=== PATIENT | male | born 2000 | race Caucasian/White ===

== ENCOUNTER 2020-06-17 11:56 | Emergency (ER) | payer BC, SELFPAY ==
[2020-06-17 12:11] VITALS: BP 145/78; PULSE 123; TEMP 36.1; O2SAT 96
--- NOTE | 2020-06-17 12:15 | DI.RAD_ITS ---
EXAM: XR KNEE RT 3V AP,LAT,JAKE CLINICAL HISTORY: Lateral knee pain,. TECHNIQUE: 2D digital imaging was performed. COMPARISON: No exams were available for comparison FINDINGS: Main finding here is a large unstable osteochondral defect in the articular surface of the medial fem oral condyle. There is an adjacent 11 by 13 by 5 millimeter osteophytic fragment at this level. Sma ll joint effusion. No degenerative changes. No osseous lesions. IMPRESSION: Large unstable osteochondral defect in the medial femoral condyle. Small joint effusion. DATA REPOSITORY: RADIATION DOSE DELIVERED:
--- NOTE | 2020-06-17 12:22 | W.ED.GENAD ---
Discharge Plan Disposition Patient Disposition: HOME Condition: Stable Discharge Details Clinical Impression: Chronic pain of right knee Primary Care Provider: Mackenzie,Local ED Provider: Jessa Wynn Home Meds and New Rx's Prescriptions: No Action No Known Home Meds RF: 0 Discharge Instructions Instructions: Knee Pain (ED), Meniscus Tear (ED) Additional Instructions: Rest, ice, compression, elevation. Please take Tylenol or Ibuprofen with food every 4-6 hours as needed for pain and swelling. Wear splint as needed for comfort. Please follow-up with [facility] [place] orthopedics within the next week regarding need for possible MRI and discussion of treatment options with test specialist. Referrals: Mk Landry MD [ [facility] STAFF PHYSICIAN] - 1 week Medical Decision Making 20-year-old male presents to the ER chief complaint of right knee pain which began approximately 2 hours prior to arrival. He states that he was laying in bed with his knee when he got stuck he also states that he has been having some pain and locking of his right leg for a while. He denies any significant injuries or falls that he knows of. He does have a past medical history of anxiety, ADHD, Tourette's syndrome, obesity. He is not currently taking any medications at this time. He does endorse alcohol a few times a week non-smoker. Denies any illicit drugs. Did not take any Tylenol or ibuprofen prior to arrival. 1313: Spoke with Orthopedic Surgeon Mk Landry MD who was able to personally review the x-ray he recommends follow-up in the clinic and will discuss MRI with patient and possible surgery. He thinks this could possibly be a cartilage tear And may need surgical intervention. No recommendations at this time for splint or immobilization and will discuss this with patient and mom for symptomatic treatment. CLINICAL HISTORY: Lateral knee pain,. TECHNIQUE: 2D digital imaging was performed. COMPARISON: No exams were available for comparison FINDINGS: Main finding here is a large unstable osteochondral defect in the articular surface of the medial femoral condyle. There is an adjacent 11 by 13 by 5 millimeter osteophytic fragment at this level. Small joint effusion. No degenerative changes. No osseous lesions. IMPRESSION: Large unstable osteochondral defect in the medial femoral condyle. Small joint effusion. Patient was given a hinged knee staff. Differential diagnosis include meniscus tear, cartilage tear, occult fracture. HPI General Mode of arrival: ambulatory. Date/Time Provider Initiated Documentation: 06/17/20 11:58. Limitations to Documentation: no limitations. Information obtained by: patient. HPI Narrative: 20-year-old male presents to the ER chief complaint of right knee pain which began approximately 2 hours prior to arrival. He states that he was laying in bed with his knee when he got stuck he also states that he has been having some pain and locking of his right leg for a while. He denies any significant injuries or falls that he knows of. He does have a past medical history of anxiety, ADHD, Tourette's syndrome, obesity. He is not currently taking any medications at this time. He does endorse alcohol a few times a week non-smoker. Denies any illicit drugs. Did not take any Tylenol or ibuprofen prior to arrival. Related Data Home Medications Medication Instructions Recorded Confirmed Unknown [No Known Home Meds] 06/17/20 06/17/20 Allergies Allergy/AdvReac Type Severity Reaction Status Date / Time No Known Allergies Allergy Unverified 06/17/20 12:17 General Stated Complaint: Orthopedic LV: 4 Review of Systems All systems reviewed & are unremarkable except as noted in HPI and below Musculoskeletal Musculoskeletal: Reports back pain, Denies deformity, Reports arthralgias, Reports limited range of motion (Right knee), Denies numbness, Denies radiating pain into limb, Reports stiffness and Denies tingling Neurologic Neurologic: Denies numbness and Denies tingling [facility] Medical History Anxiety Attention deficit hyperactivity disorder, combined type Javi de la Tourette's syndrome Hyperhidrosis Obesity Surgical History Circumcision Hydrocelectomy Family History Mother Mental disorder anxiety Father Essential hypertension Grandparent Essential hypertension Heart disease Neoplasm Other Substance abuse Other Alcohol abuse Social History Smoking/Tobacco Use Status: Never Smoking risk assessment performed?: Yes Alcohol Intake: current Alcohol Intake frequency: a few times a week Alcohol type: beer Drug use: Never Substance use type: does not use Do you feel safe at home: Yes Do you feel safe in your relationship?: Yes Exam Narrative Exam Narrative: Constitutional: Alert and oriented x3. Appears stated age. Obese body habitus. Appears anxious, slightly diaphoretic. Head: Normocephalic, no trauma. Eyes: Pupils PERRLA, Red reflex noted, EOM's intact. Eyelids symmetrical without lesions, discharge, or swelling. ENT: Bilateral TM's WNL, External ear normal to inspection, no mastoid TTP, swelling, or erythema, Nasal turbinates WNL, no nasal discharge. Normal dentition, Posterior pharynx WNL, no exudate. Chest: RRR, Normal S1, S2, distal pulses intact. Resp: Lungs clear to auscultation bilaterally, no wheezes, rales, or rhonchi. Musculoskeletal: Normal gait, 5/5 strength to all four extremities. Please take Tylenol or Ibuprofen with food every 4-6 hours as needed for pain and swelling. Anterior joint tenderness with increased flexion of lateral joint. Distal pulses intact no swelling no calf pain ,no obvious deformity. Skin: No suspicious rashes or lesions. Capillary refill less than 2 sec. Neurologic: Cranial nerves II-XII intact. Alert and oriented x 3. DTR's intact. Hematologic/Lymphatic: No ecchymosis, no lymphadenopathy. Course Vital Signs Vital signs: Vital Signs Temperature 36.1 C L 06/17/20 12:11 Pulse 123 H 06/17/20 12:11 Blood Pressure 145/78 H 06/17/20 12:11 Pulse Oximetry 96 06/17/20 12:11 Temperature 36.1 C L 06/17/20 12:11 Temperature Source Temporal Artery Scan 06/17/20 12:11 Pulse 123 H 06/17/20 12:11 Respiratory Effort Non-Labored 06/17/20 12:15 Blood Pressure 145/78 H 06/17/20 12:11 Blood Pressure Position Sitting 06/17/20 12:11 Pulse Oximetry 96 06/17/20 12:11 Oxygen Delivery Method Room Air 06/17/20 12:11 Oxygen Flow Rate 0 06/17/20 12:11 Pain Level 0 06/17/20 12:11 Comment 06/17/20 12:11
[2020-06-17] MEDS: Ibuprofen 600 MG TAB PO (12:28)
== END 2020-06-17 13:34 | disposition home or self-care (01) ==
PROVIDERS: Emergency Provider Registered Nurse Emergency
DX: M25.561 Pain in right knee (principal); G89.29 Other chronic pain; M25.461 Effusion, right knee
CPT/HCPCS: 73562; 99283

== ENCOUNTER 2020-07-09 00:46 | Outpatient (CLI) | payer BC, SELFPAY ==
--- NOTE | 2020-07-09 07:00 | DI.MRI_ITS ---
EXAM: MR LOWER JOINT RT WO CLINICAL HISTORY: RT KNEE PAIN, M93.269,OSTEOCHONDRITIS DISSECANS,M25.561,G89.29. TECHNIQUE: Multiplanar multisequence MRI was performed. COMPARISON: CR XR KNEE RT 3V AP,LAT,JAKE from 06/17/2020 FINDINGS: The exam is limited by patient body habitus and patient motion. There is inhomogeneous fat suppressi on. There is an osteochondral defect of the anterolateral aspect of the medial femoral condyle. there is an in situ fragment measuring 15 millimeters. There is adjacent marrow edema and some fluid between the fragment consistent with instability. There is disruption of the overlying articular cartilage . No additional defects are seen. The marrow signal is otherwise unremarkable. The cruciate and co llateral ligaments as well as extensor mechanism appear intact. No meniscal tear is are seen. The re is a small joint effusion. IMPRESSION: 15 millimeter osteochondral defect of the medial femoral condyle with cartilage defect and surroundin g edema, consistent with instability.. DATA REPOSITORY:
== END 2020-07-09 01:06 ==
PROVIDERS: Visit Provider Student in an Organized Health Care Education/Training Program
DX: M25.561 Pain in right knee (principal); M93.261 Osteochondritis dissecans, right knee; M25.361 Other instability, right knee
CPT/HCPCS: 73721

== ENCOUNTER 2020-07-28 13:37 | Outpatient (CLI) | payer BC, SELFPAY ==
--- NOTE | 2020-07-28 13:15 | DI.RAD_ITS ---
EXAM: XR KNEE RT 2V AP,LAT CLINICAL HISTORY: F/U. TECHNIQUE: 2D digital imaging was performed. COMPARISON: CR XR KNEE RT 3V AP,LAT,JAKE from 06/17/2020 FINDINGS: BONES: No acute fracture is present. No bony destructive lesion is seen. The previously seen osteocho ndral fragment is not visualized on the current examination. JOINTS: The knee is normally aligned. No joint effusion is seen. SOFT TISSUE: Normal. IMPRESSION: DATA REPOSITORY: RADIATION DOSE DELIVERED:
== END 2020-07-28 13:38 | disposition home or self-care (01) ==
LOC: DIORS 13:38
PROVIDERS: Visit Provider Student in an Organized Health Care Education/Training Program
DX: M25.561 Pain in right knee (principal); G89.29 Other chronic pain
CPT/HCPCS: 73560

== ENCOUNTER 2020-09-23 01:53 | Outpatient (CLI) | payer BC, SELFPAY ==
[2020-09-23 12:43] LABS: Source Nasal/Nares
[2020-09-23 17:23] LABS: COVID-19 PCR Negative (Negative)
== END 2020-09-23 01:54 | disposition home or self-care (01) ==
LOC: LBO 01:54
PROVIDERS: Visit Provider Student in an Organized Health Care Education/Training Program
DX: Z20.822 Contact with and (suspected) exposure to COVID-19 (principal); Z01.818 Encounter for other preprocedural examination
CPT/HCPCS: 87635

== ENCOUNTER 2020-09-25 06:17 | Day surgery (SDC) | payer BC, SELFPAY ==
--- NOTE | 2020-08-04 10:21 | W.ANESCON ---
General Date of Service Date of Service: 08/04/20 Reason for Consult Requesting Provider: Mk Landry How Consult Conducted:: Chart Review Reason for Consult:: BMI Consult Recommendation after Review:: Ok to proceed. 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 Medical History Medical History (Updated 07/28/20 @ 16:34 by Mk Landry MD) Anxiety Attention deficit hyperactivity disorder, combined type Javi de la Tourette's syndrome Hyperhidrosis Obesity Osteochondritis dissecans of knee Right knee Surgical History Surgical History Circumcision Hydrocelectomy Tobacco Smoking/Tobacco Use Status: Never Alcohol Alcohol Intake: current Alcohol intake frequency: a few times a week Alcohol type: beer Substance Use Substance use: Never Substance use type: does not use Vital Signs & Lab Results Point of Care Results Nursing Point of Care Results: No Data to Display Lab Results Blood Type / Crossmatch: No Data to Display Complete Blood Count: No Data to Display Complete Metabolic Panel: Hemoglobin A1c 6.1 % (4.5-6.2) 11/15/13 09:51 11/15/13 Liver Function Panel: No Data to Display Coagulation Panel: No Data to Display Cardiac Panel: No Data to Display Arterial Blood Gas: No Data to Display Venous Blood Gas: No Data to Display Pancreas Panel: No Data to Display Thyroid Panel: Thyroid Stimulating Hormone (TSH) 3.09 uIU/mL (0.36-3.74) 11/18/13 13:30 11/18/13 Infectious Disease: Group A Streptococcus Rapid Negative 05/12/14 11:09 05/12/14 Blood Cultures: No Data to Display Toxicology Panel: No Data to Display Imaging and Studies Imaging and Studies EKG Image & Interpretation: No Data to Display Stress Test Interpretation: No Data to Display Echo Interpretation: No Data to Display Carotid Artery US: No Data to Display Pulmonary Function Test Interpretation: No Data to Display Anesthesia Assessment and Plan ASA Classification ASA Score: ASA 3 Anesthesia Plan Anesthesia Technique: General Anesthesia Airway Planned: Endotracheal Tube Pain Management: Surgeon and patient request nerve block Monitors Used: Standard Monitors Preoperative Comments:: Asked to evaluate Mr. Lyn's ability to have anesthesia here at [facility] given his BMI. While his BMI is significantly elevated, he has no other major medical history, and based on age and health history he should be a reasonable candidate for anesthesia here.
[2020-09-25] VITALS (10 sets, daily range): BP systolic 115–143; BP diastolic 59–94; PULSE 90–109; RESP 18–23; TEMP 36–36.7; O2SAT 94–100; BMI 53.4
--- NOTE | 2020-09-25 07:00 | W.ANESPRE ---
General Info Date of Service Date Performed: 09/25/20 Height: 6 ft Weight: 178.7 kg Body Mass Index (BMI): 53.4 Surgical Procedure: Operation Date: 09/25/20 07:40 Proposed Procedures Side Surgeon p Knee Arthroscopy with any indicated meniscal,chondral and synovial surgery including osteochondral defect,versus loose body removal and microfracture. Possible manipulation Right Mk Landry MD Meds Allergies and Home Medications Allergies Allergy/AdvReac Type Severity Reaction Status Date / Time No Known Allergies Allergy Verified 09/25/20 06:40 Home Medication Medication Instructions Recorded Unknown [No Known Home Meds] 06/17/20 Current Visit Medications: Current Medications Generic Name Dose Route Start Last Admin Trade Name Freq PRN Reason Stop Dose Admin Cefazolin Sodium 3,000 mg/ 100 mls @ 200 mls/hr 09/25/20 06:00 Sodium Chloride IVPB 09/25/20 16:00 Q8H GERARDO Ringer's Solution 1,000 mls @ 100 mls/hr 09/25/20 06:00 IV 10/24/20 23:59 INFUSION GERARDO IV Miscellaneous Supplies 1 each 09/25/20 06:00 Iv Access IV 10/24/20 23:59 DIRECTED GERARDO Sodium Chloride 0 ml 09/25/20 06:00 Normal Saline Flush 10 Ml Syr IV 10/24/20 23:59 PRN PRN Sodium Chloride 0 ml 09/25/20 06:00 Normal Saline 10 Ml Vial IJ 10/24/20 23:59 DIRECTED PRN Sterile Water 0 ml 09/25/20 06:00 Water,Injection,Sterile 10 Ml Vial IJ 10/24/20 23:59 DIRECTED PRN PFSH Active Problems Active Problems: Problem Status Onset Code Stiffness of right knee M25.661 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 Medical History Medical History Anxiety Attention deficit hyperactivity disorder, combined type Javi de la Tourette's syndrome Hyperhidrosis Obesity Osteochondritis dissecans of knee Right knee Surgical History Surgical History Circumcision Hydrocelectomy Tobacco Smoking/Tobacco Use Status: Never Alcohol Alcohol Intake: current Alcohol intake frequency: a few times a week Alcohol type: beer Substance Use Substance use: Never Substance use type: does not use Vital Signs and Lab Results Vital Signs Most Recent Vital Signs in EMR: Most Recent Vital Signs Temp Pulse Resp BP Pulse Ox 36.7 C 101 H 20 141/94 H 98 09/25/20 06:21 09/25/20 06:21 09/25/20 06:21 09/25/20 06:21 09/25/20 06:21 Lab Results Blood Type / Crossmatch: No Data to Display Complete Blood Count: No Data to Display Complete Metabolic Panel: No Data to Display Liver Function Panel: No Data to Display Coagulation Panel: No Data to Display Cardiac Panel: No Data to Display Arterial Blood Gas: No Data to Display Venous Blood Gas: No Data to Display Pancreas Panel: No Data to Display Thyroid Panel: No Data to Display Infectious Disease: Coronavirus (COVID-19)(PCR) Negative (Negative) 09/23/20 11:20 09/23/20 Coronavirus 2019 Source Nasal/Nares 09/23/20 11:20 09/23/20 Blood Cultures: No Data to Display Toxicology Panel: No Data to Display Anesthesia Assessment and Plan Anesthesia History Personal History: No History of Anesthesia Complications Family History: No Family History of Anesthesia Complications Exercise Tolerance Exercise Tolerance: Metabolic Equivalents>4 Pertinent Negatives Pertinent Negatives: No Symptoms of GERD, No Major Cardiovascular Symptoms or Complaints and No Major Pulmonary Symptoms or Complaints Cardiac & Pulmonary Exam Cardiac Exam: Normal S1/S2 Heart Sounds Pulmonary Exam: Clear Bilateral Breath Sounds Airway Exam Known Difficult Airway: No Mallampati Class: 2 Mouth Opening: Normal (> 3cm) Thyromental Distance: Greater than 3 cm Facial Hair: Full Uribe Neck Range of Motion: Full ROM Neck Circumference: Normal Teeth Condition: Normal Dentition ASA Classification ASA Score: ASA 3 Emergency Case?: No NPO Status NPO Status: NPO Clears >2 hours, Solids >8 hours Anesthesia Plan Resuscitation Status: Full Code Anesthesia Technique: General Anesthesia Airway Planned: Endotracheal Tube Monitors Used: Standard Monitors
[2020-09-25] MEDS: ceFAZolin 3,000 MG in Normal Saline 100 ML 200 MG IVPB (07:52)
[2020-09-25] MEDS: EPINEPHrine 30 MG/30 ML VIAL (10:00)
[2020-09-25] MEDS: Bupivacaine 0.25% Pres-Free 30 ML VIAL (10:00)
--- NOTE | 2020-09-25 10:31 | PDOC.DSDIS_ITS ---
Discharge Plan Disposition Patient Disposition: HOME Condition: Stable Discharge Details Reason For Visit: Right knee surgery Attending Provider: Mk Landry Primary Care Provider: None,None Home Meds and New Rx's Prescriptions: New naproxen 250 mg tablet 250 - 500 mg PO BID PRN (Reason: Moderate pain or swelling) Qty: 60 RF: 0 aspirin 325 mg tablet,delayed release (DR/EC) 325 mg PO BID 30 Days Qty: 60 RF: 0 oxycodone 5 mg tablet 5 - 10 mg PO Q4H PRN (Reason: moderate to severe pain) Qty: 16 RF: 0 Discharge Instructions Additional Instructions: Surgery: Knee arthroscopy with medial femoral condyle OCD repair, microfracture, and synovectomy Activity: Protected weight bearing (less than 50%) with crutches for 6 weeks. Encourage daily range of motion to the knee. Restore full extension as soon as possible. Recommend avoiding cutting, pivoting, or sports, or squatting for 3 months followed by gradual return to full activities. A physical therapy prescription will be sent electronically to start in about 2 weeks. Prescriptions: Aspirin 325 mg take 1 twice daily to prevent a blood clot for 30 days Naproxen 250 mg take 1-2 every 12 hours with a meal as needed for moderate pain Oxycodone 5 mg take 1-2 every 4-6 hours as needed for severe pain You may use [id number] Tylenol (acetaminophen) as needed for mild pain. These pain medications may be taken all at once or in different combinations as needed. Also, recommend Colace (docusate) as a stool softener as surgery and pain medicine cause constipation. Dressings: Leave dressing in place for 3 days. May then remove and leave open to air or cover incisions with Band-Aids. May shower after 5 days. Follow-up: 10-[address] Landry Let us know right away if you develop any redness, drainage, fevers, chest pain, or trouble breathing. Do not drink alcohol or drive for at least 24 hours after anesthesia. Please call the office during business hours with any questions or concerns. Referrals: Mk Landry MD [ [facility] STAFF PHYSICIAN] - Discharge Orders Discharge Orders: Discharge Order (Routine); Ordered 09/25/20 Ordered By: Mk Landry DS: Diagnosis Discharge Diagnosis (1) Stiffness of right knee: Status: Acute (2) Osteochondritis dissecans of knee: Status: Acute
--- NOTE | 2020-09-25 10:49 | W.PM.OP ---
Date of service: 09/25/20 Time of Service: 08:00 Operative Note Operative Note DATE OF PROCEDURE: 09/25/20 PRE-OP DIAGNOSIS: Right knee 1. Osteochondritis dissecans 2. Synovitis 3. Chondromalacia 4. Stiffness POST-OP DIAGNOSIS: same PROCEDURE: Right knee 1. Arthroscopic drilling and repair of osteochondritis dissecans with internal fixation, CPT #92309: Medial femoral condyle unstable OCD lesion 2. Microfracture and chondroplasty, CPT #77245: Separate, adjacent MFC full-thickness cartilage lesion 3. Greater than 2 compartment synovectomy, CPT #77246: Medial, intercondylar, and patellofermoral SURGEON: Mk Landry [employer]IGH [employer]IES TUTOR: Andres Wilkins ANESTHESIA TYPE: Local By Surgeon and General LMA/ETT Refer to Anesthesia Record ESTIMATED BLOOD LOSS: 5 PATHOLOGY: none sent TOURNIQUET TIME: 0 COMPLICATIONS: None Patient was transported to: PACU Patient's condition: stable Implants: Arthrex 3mm Bio-Compression screw, 22mm x1; Chondral Dart x2 Indications: Please see complete medical record for details. Findings: Exam under anesthesia: Full range of motion. No contracture. Stable. Exam still limited by significant soft tissue envelope. Arthroscopic findings: Significant synovitis medially, intercondylar, and patellofemoral. Intact ACL, medial meniscus, and lateral meniscus. Intact articular cartilage except for 15 mm x 10 mm x 6-8 mm deep unstable osteochondral defect on the distal lateral aspect of the medial femoral condyle. Adjacent distal central medial femoral condyle full-thickness cartilage defect about 4 x 6 mm. Procedure Description: In the operating room, genral anesthesia was induced. The patient was positioned supine on the operating room table. All bony prominences were well-padded. Preoperative antibiotics were administered. The knee was prepped and draped in the usual sterile fashion. The correct patient, procedure, and side of the procedure were all verified prior to incision. Exam under anesthesia was performed. 10 cc of 0.25% bupivacaine was infiltrated about the planned anteromedial and anterolateral knee arthroscopy portals. The portals were established and a complete diagnostic arthroscopy was performed with relevant findings detailed above. The mechanical shaver was used to remove pathologic synovium from the medial, intercondylar, and patellofemoral compartments. The knee was positioned in moderate flexion and the anteromedial portal directed and enlarged directly at the OCD. An 8 x 3 mm passport was inserted. The cartilage lesion was probed with findings described above. The probe was carefully used to flip the entirety of the lesion off the bed exposing bone and chronic fibrinous tissue. Care was taken to preserve the tiny thin lateral, intercondylar, intact cartilage flap. With the OCD bed exposed, the mechanical shaver and various hand instruments including elevators and rasp were used to debride the fracture bed of fibrinous tissue exposing bone and establishing vertical margins. A 1.6 mm K wire was then used to perforate the fracture bed throughout its area with whole space to few millimeters apart each with depth to about a centimeter for adequate bone marrow stimulation. This bleeding prepared bed was confirmed with inflow turned off. The osteochondral flap reduced with a blunt probe over the bed and secured in reduced position using a 1.1 mm K wire through a percutaneous transpatellar tendon portal. The passport was removed. The bio compression screw clear guide was inserted to the central and distal most substantial portion of the lesion. The screw and tap were then used for a 22 mm screw, which was inserted and appropriately countersunk into the cartilage. The probe confirmed excellent reduction and fixation of the distal and medial aspect of the lesion. The K wire was removed and a switching stick and small dilators used to enlarge the transpatellar tendon portal to accommodate the small chondral dart guide, which was used to predrill and insert to chondral darts centrally and more laterally in the lesion. The probe was used to inspect the articular cartilage reduction, margin, and stability. The lesion was well secured decision was made to omit any additional fixation. The lesion also did not engage the tibial plateau until the knee was brought into fairly terminal extension. Medially and distally to the repaired OCD lesion was a separate full-thickness cartilage defect. Mechanical shaver was used to debride thin amount fibrinous tissue and elevators were used to establish vertical curran and expose subchondral bone. The 1.1 mm K wire was used to perforate the subchondral bone to a depth of about 1 cm placing various holes a few millimeters apart for optimal bone marrow stimulation. Excellent bleeding bed was confirmed with inflow turned off. Under direct arthroscopic visualization an 18-gauge needle was passed into the knee from superolateral into the suprapatellar pouch. The knee was copiously irrigated with arthroscopic fluid until there was a clear effluent before being drained of all fluid. The anteromedial and anterolateral portals were closed in 3-0 Monocryl in a buried interrupted fashion. 20 cc of 0.25% bupivacaine containing 4 mg of morphine was infiltrated into the knee through the previously placed needle. Mastisol, Steri-Strips, and 4 x 4 gauze were applied over the incisions followed by sterile soft roll. The knee was then wrapped gently with an CELIA comressive bandage. The patient awoke from anesthesia without complication and was transferred to the recovery room in a stable condition.
--- NOTE | 2020-09-25 12:58 | IN_ITS ---
Date of service: 09/25/20 Time of Service: 12:30 PT Notes Visit Reasons: Right knee surgery Inpatient Physical Therapy Evaluation Date: 09/25/20 Referring Doctor: Dr. Landry PT Orders: PT CONSULT: safety consult for d/c Precautions: PWB (less than 50%) with crutches for 6 weeks Patient Profile/Admitting Diagnosis: PT consult received for safety consult for patient s/p arthroscopic repair of right knee OCD, with microfracture, ch ondroplasty, and synovectomy. PMHX: anxiety; ADHD; Tourette's syndrome; obesity with BMI 53.7 Social History/Home Situation: Patient lives with family in a private home. He reports ramp to enter, then various single steps to get room to room within the house. He typically ambulates without AD, however states that he walks very little. He does not typically leave the house, and walks only to the kitchen or bathroom in his home. Prior to surgery, he reports that he had been hopping around without a device, only putting weight on the toes of his right foot. Equipment Owned/DME: none Subjective: Patient states that he is very nervous about walking. Reports fear of falling. He reports a very sedentary lifestyle, with limited walking at [facility]. He spends most of his day either in his chair or in bed. He has questions about dressing, bathing, etc. Objective: General Observation: Resting in bed at initiation of session. No lines. Mental Status: A&Ox3. Anxious at initiation of session. Pain: denies. He reports numbness in right hand. ROM: Right Upper Extremity: WFL Left Upper Extremity: WFL Right Lower Extremity: Knee extension with quad setting allows approx -10-15 degrees. He functionally demonstrates 80 degrees knee flexion. Ankle DF lacks 10 degrees. Patient unable to obtain flat foot in standing position, with WBing limited by UE support to FWW. Left Lower Extremity: WFL Strength: Right Upper Extremity: WFL Left Upper Extremity: WFL Right Lower Extremity: Patient able to perform SLR within available range (extension to -10-15, but without additional extension lag). Left Lower Extremity: Quads 4+/5. Sensation: intact distally Bed Mobility/Transfers: supine-sit: independent sit-stand: supervision stand-sit: supervision, with patient education for transfer with limited WBing Gait: Patient ambulates 30'x3 with bariatric FWW. He required verbal and tactile cues for WBing <50%. Patient additionally ambulated 10' with bilat axillary crutches with CGA x 2, where he demonstrates poor maintenance of WBing restrictions, trunk instability, and reports feeling uneasy. Stairs: Patient manages therapeutic stairs, ascending and descending 6 inch step x2 with bilateral upper extremity support to rails and maintenance of partial weightbearing right lower extremity. He received patient education for vania ropriate technique, after which he is able to complete with CGA. Balance: Static Sitting: Good Dynamic Sitting: Good Static Standing: Good Dynamic Standing: Fair Special Tests: Mobility Limitations Standardized Measure [facility] AM-PAC 6 clicks Basic Mobility Inpatient Short Form: Raw Score: 23 CMS Score: 11% deficit Informed Consent/Education: Patient instructed in purpose of PT consult and plan of care. He received gait, stair, and transfer training, and was able to demonstrate safety with use of bariatric FW W. Patient had several questions regarding bathing, dressing, etc. Verbally explained seated donning/doffing of clothing, and discussed potential need for tub seat in the future, and use of sponge baths upon return home. Assessment: Patient is a 20 year old male referred to physical therapy services with the diagnosis of right knee OCD, status post arthroscopic repair, microfracture, chondroplasty, synovectomy, postop day 0. Patient presents with clinical signs and symptoms consistent with postoperative status, as demonstrated by the following impairment level findings: 1. Decreased range of motion right knee 2. Decreased range of motion right ankle secondary to prolonged gait impairments 3. Restricted weightbearing postoperatively 4. Decreased dynamic balance 5. Decreased activity tolerance Impairments are contributing to the following functional limitations: 1. Decreased tolerance to household distance ambulation 2. Unable to manage stairs 3. Decreased independence with ADLs Patient is assessed as Moderate [id number] complexity based on the following: History: Patient is a 20-year-old male with right knee OCD, status post arthroscopic repair, microfracture, chondroplasty, synovectomy, postop day 0. He presents with mobility deficits consistent with postoperative status. PT consult was ordered for gait, stair, transfer training to allow for safe return home today. Patient was able to demonstrate effective safety and verbalized understanding of weightbearing precautions, which he was able to maintain throughout session. He was unable to safely manage axillary crutches, and was subsequently transitioned to bariatric FW W, which he will require in order to safely transition back home. He also benefit from home health PT/OT to address his concerns with household mobility and ADLs if referring physician is in agreement. Complicating factors include morbid obesity, extremely sedentary lifestyle, and anxiety. Examination: Functional limitations as noted above Presentation: Evolving Decision Making: Moderate complexity Plan of Care/Treatment Plan: Patient received transfer, gait, stair training, after which he was able to demonstrate safe mobility with use of bariatric FW W. He is appropriate for discharge from PT, with recommendation for follow-up with either home health or outpatient PT. DISCHARGE RECOMMENDATIONS: Home, bariatric FW W, home health/outpatient PT/OT TREATMENT CODE/TIME: 1230?1:00 ([id number]) Rhina Jiménez, PT, DPT [facility]
== END 2020-09-25 13:15 | disposition home or self-care (01) ==
PROVIDERS: Visit Provider Student in an Organized Health Care Education/Training Program
PROC: (CPT 29870; principal; 2020-09-25 07:30)
DX: M93.261 Osteochondritis dissecans, right knee (principal); M94.261 Chondromalacia, right knee; E66.9 Obesity, unspecified; Z68.43 Body mass index [BMI] 50.0-59.9, adult; F90.9 Attention-deficit hyperactivity disorder, unspecified type; F95.2 Tourette's disorder; M65.861 Other synovitis and tenosynovitis, right lower leg
CPT/HCPCS: 29887; 29876; 97162; J0131; J0690; J1100; J1885; J2001; J2405; J2704

== ENCOUNTER 2020-10-30 21:26 | Emergency (ER) | payer BC, SELFPAY ==
[2020-10-30 21:34] VITALS: BP 151/80; PULSE 101; RESP 18; TEMP 36.6; O2SAT 96
[2020-10-30 21:37] VITALS: RESP 18
--- NOTE | 2020-10-30 21:50 | W.ED.GENAD ---
Discharge Plan Disposition Patient Disposition: HOME Condition: Stable Discharge Details Clinical Impression: Localized swelling of right lower leg Primary Care Provider: None,None ED Provider: Jessa Wynn Home Meds and New Rx's Prescriptions: No Action naproxen 250 mg tablet 250 - 500 mg PO BID PRN (Reason: Moderate pain or swelling) Qty: 60 RF: 0 Discharge Instructions Instructions: Leg Edema (ED) Additional Instructions: Please keep Leg elevated while sitting or laying down, do not go back to physical therapy until we have a negative ultrasound. You may call the orthopedic phone number and speak with the on-call physician for Dr. Landry's office for further instructions. Please follow-up as instructed for ultrasound as instructed by diagnostic imaging department and return to the emergency room after getting the exam for result. May continue to take aspirin daily. Return sooner to the emergency room if you have any chest pain fast heart rate, shortness of breath or feeling worse at any time. Referrals: Mk Landry MD [ [facility] STAFF PHYSICIAN] - Discharge Data Discharge Date/Time-TO BE ENTERED AT DEPARTURE: 10/30/20 22:35 Medical Decision Making 20-year-old male with a past medical history of Tourette's, obesity, ADHD, anxiety, anxiety presents to the ER chief complaint of right foot and ankle swelling which has gotten worse over the last 2 weeks. Patient is status post right arthroscopic knee surgery on September 25. Patient reports that for the last 2 weeks he has noticed increased swelling to his lower extremity foot and ankle. He has been going to physical therapy for some increased range of motion exercises to his ankle and knee. He denies any fever chills no chest pain no shortness of breath no palpitation. Mom has been given him to adult aspirin since Monday. Patient reports that he has not been elevating his leg or icing it. He denies any calf pain. Outpatient ultrasound right lower extremity Doppler ordered to rule out DVT. Diagnostic imaging to attempt to call on-call fmd teacher to see if they can schedule it for tomorrow. Awaiting callback. In the meantime will discharge patient with instructions on elevation, ice, and discontinuing physical therapy until negative Ultrasound. Discussed strict return instructions with patient and family instructed to continue giving aspirin. They verbalized understanding. Instructed to return to ED for US results. HPI General Mode of arrival: ambulatory. Date/Time Provider Initiated Documentation: 10/30/20 21:27. Limitations to Documentation: no limitations. Information obtained by: patient and family. HPI Narrative: 20-year-old male with a past medical history of Tourette's, obesity, ADHD, anxiety, anxiety presents to the ER chief complaint of right foot and ankle swelling which has gotten worse over the last 2 weeks. Patient is status post right arthroscopic knee surgery on September 25. Patient reports that for the last 2 weeks he has noticed increased swelling to his lower extremity foot and ankle. He has been going to physical therapy for some increased range of motion exercises to his ankle and knee. He denies any fever chills no chest pain no shortness of breath no palpitation. Mom has been given him to adult aspirin since Monday. Patient reports that he has not been elevating his leg or icing it. He denies any calf pain. Related Data Home Medications Medication Instructions Recorded Confirmed naproxen 250 - 500 mg PO BID PRN #60 tab 09/25/20 10/30/20 Previous Rx's Medication Instructions Recorded naproxen 250 - 500 mg PO BID PRN #60 tab 09/25/20 Allergies Allergy/AdvReac Type Severity Reaction Status Date / Time No Known Allergies Allergy Verified 10/30/20 21:37 General Stated Complaint: Vascular LV: 3 Review of Systems All systems reviewed & are unremarkable except as noted in HPI and below Cardiovascular Cardiovascular: Denies chest pain, Denies chest pain at rest, Reports leg edema, Denies palpitations and Denies dyspnea Respiratory Respiratory: Denies cough, Denies hemoptysis, Denies pain on inspiration and Denies dyspnea Musculoskeletal Musculoskeletal: Reports as per HPI and Reports joint swelling (Foot/ankle s/p Surgery) Endocrine Endocrine: Denies palpitations [facility] Medical History Anxiety Attention deficit hyperactivity disorder, combined type Javi de la Tourette's syndrome Hyperhidrosis Obesity Osteochondritis dissecans of knee Right knee Surgical History Circumcision Hydrocelectomy Family History Mother Mental disorder anxiety Father Essential hypertension Grandparent Essential hypertension Heart disease Neoplasm Other Substance abuse Other Alcohol abuse Social History Smoking/Tobacco Use Status: Never Smoking risk assessment performed?: Yes Alcohol Intake: current Alcohol Intake frequency: a few times a week Alcohol type: beer Drug use: Never Substance use type: does not use Current gender identity: male Do you feel safe at home: Yes Do you feel safe in your relationship?: Yes Exam Narrative Exam Narrative: Constitutional: Alert and oriented x3. Appears stated age. body habitus. Head: Normocephalic, no trauma. Eyes: Pupils PERRLA, Red reflex noted, EOM's intact. Eyelids symmetrical without lesions, discharge, or swelling. ENT: Bilateral TM's WNL, External ear normal to inspection, no mastoid TTP, swelling, or erythema, Nasal turbinates WNL, no nasal discharge. Normal dentition, Posterior pharynx WNL, no exudate. Chest: RRR, Normal S1, S2, distal pulses intact. Resp: Lungs clear to auscultation bilaterally, no wheezes, rales, or rhonchi. Musculoskeletal:5/5 strength to all four extremities. Uses a walker, reports right foot and ankle swelling 2+ pitting edema noted to right foot on exam. Skin: No suspicious rashes or lesions. Capillary refill less than 2 sec. Neurologic: Cranial nerves II-XII intact. Alert and oriented x 3. DTR's intact. Hematologic/Lymphatic: No ecchymosis, no lymphadenopathy. Course Vital Signs Vital signs: Vital Signs Temperature 36.6 C 10/30/20 21:34 Pulse 101 H 10/30/20 21:34 Respiratory Rate 18 10/30/20 21:34 Blood Pressure 151/80 H 10/30/20 21:34 Pulse Oximetry 96 10/30/20 21:34 Temperature 36.6 C 10/30/20 21:34 Pulse 101 H 10/30/20 21:34 Respiratory Rate 18 10/30/20 21:37 Respiratory Effort Non-Labored 10/30/20 21:37 Blood Pressure 151/80 H 10/30/20 21:34 Pulse Oximetry 96 10/30/20 21:34 End Tidal Co2 2 10/30/20 21:34 Pain Level 2 10/30/20 21:37
--- NOTE | 2020-10-31 12:30 | DI.US_ITS ---
Exam(s) US LOWER EXTREMITY VENOUS RT EXAM: US LOWER EXTREMITY VENOUS RT CLINICAL HISTORY: R leg swelling, r/o dvt. TECHNIQUE: Ultrasound performed using standard protocol. COMPARISON: No exams were available for comparison FINDINGS: Duplex venous ultrasound was performed according to the usual protocol. The deep veins are freely com pressible throughout and there is normal flow augmentation with manual calf compression. 2D and Doppl er evaluation are unremarkable. IMPRESSION: No evidence of deep venous thrombosis of the right lower extremity. DATA REPOSITORY:
--- NOTE | 2020-10-31 13:54 | DI.VRAD_ITS ---
PROCEDURE INFORMATION: Exam: US Duplex Right Lower Extremity Veins, Limited Exam date and time: 10/31/2020 12:40 PM Age: 20 years old Clinical indication: Pain; Other: RT leg swelling, R/O dvt; Prior surgery; Surgery date: <1 month; Surgery type: Right arthroscopic knee surgery TECHNIQUE: Imaging protocol: Real-time Duplex ultrasound of the Right Lower Extremity with 2-D maguire scale, color Doppler flow and spectral waveform analysis with image documentation. Limited exam was focused on the right lower extremity veins. COMPARISON: CR XR KNEE RT 2V AP,LAT 07/28/2020 1:45 PM FINDINGS: Right deep veins: Unremarkable. The common femoral, femoral, proximal profunda femoral and popliteal veins are patent without thrombus. Normal Doppler waveforms. Normal compressibility and/or augmentation response. Right superficial veins: Unremarkable. Saphenofemoral junction is patent without thrombus. Soft tissues: Unremarkable. IMPRESSION: No evidence of deep vein thrombosis. Dictated and Authenticated by: Bridgett Hernandez MD. Ordering:RADHA Sexton MD
== END 2020-10-30 22:35 | disposition home or self-care (01) ==
PROVIDERS: Emergency Provider Registered Nurse Emergency
DX: R22.41 Localized swelling, mass and lump, right lower limb (principal); Z98.890 Other specified postprocedural states
CPT/HCPCS: 99281; 99283

== ENCOUNTER 2020-10-31 13:39 | Emergency (ER) | payer BC, SELFPAY ==
--- NOTE | 2020-10-31 13:41 | ED.GENADUL_ITS ---
Discharge Plan Disposition Patient Disposition: HOME Condition: Stable Discharge Details Clinical Impression: Right leg swelling Primary Care Provider: None,None ED Provider: Carlie Rubin Home Meds and New Rx's Prescriptions: Continued naproxen 250 mg tablet 250 - 500 mg PO BID PRN (Reason: Moderate pain or swelling) Qty: 60 RF: 0 Discharge Instructions Instructions: Leg Edema (ED) Additional Instructions: Rest, ice, and elevate the affected area as much as possible. You can wear compression stocking or sock to the right leg as needed. Apply ice to the affected area several times daily for 20 minutes at a time. Follow up with your primary care doctor in 1 week as needed. Return to the emergency department with any worsening or new concerning symptoms. Discharge Data Discharge Physician: Carlie Rubin Medical Decision Making 20-year-old male with a history of right knee arthroscopy on September 25 seen in the ED yesterday for right foot and ankle swelling for 2 weeks presents for follow- up for results of a right leg ultrasound obtained today. Isma from ultrasound reported that the right leg ultrasound was negative. Her right leg does not appear edematous compared to the left leg and there is no calf tenderness. Skin color normal to inspection and he is neurovascularly intact. Patient was given his results and advised to continue to rest, ice and elevate with Bradley wrap compression. Usual and customary return precautions given prior to discharge. Medical Records Medical records reviewed: Yes I reviewed the patient's medical records. Imaging Data Radiologic Study: Radiologist's impression: US Duplex Right Lower Extremity Veins, Limited Exam date and time: 10/31/2020 12:40 PM Age: 20 years old Clinical indication: Pain; Other: RT leg swelling, R/O dvt; Prior surgery; Surgery date: <1 month; Surgery type: Right arthroscopic knee surgery TECHNIQUE: Imaging protocol: Real-time Duplex ultrasound of the Right Lower Extremity with 2-D maguire scale, color Doppler flow and spectral waveform analysis with image documentation. Limited exam was focused on the right lower extremity veins. COMPARISON: CR XR KNEE RT 2V AP,LAT 07/28/2020 1:45 PM FINDINGS: Right deep veins: Unremarkable. The common femoral, femoral, proximal profunda femoral and popliteal veins are patent without thrombus. Normal Doppler waveforms. Normal compressibility and/or augmentation response. Right superficial veins: Unremarkable. Saphenofemoral junction is patent without thrombus. Soft tissues: Unremarkable. IMPRESSION: No evidence of deep vein thrombosis. HPI General Mode of arrival: ambulatory . Date/Time Provider Initiated Documentation: 10/31/20 13:40 . Limitations to Documentation: no limitations . Information obtained by: patient . HPI Narrative: Pt is a 20-year-old male who was seen in the ED yesterday for right foot and leg swelling and referred here today for outpatient ultrasound to rule out DVT presents to the ED for results of his ultrasound obtained in radiology today. satellite tv technician noted that the ultrasound was negative. Patient is 1 month status post a right knee arthroscopy and has had right foot and leg swelling for the past 2 weeks. Related Data Home Medications Medication Instructions Recorded Confirmed naproxen 250 - 500 mg PO BID PRN #60 tab 09/25/20 10/30/20 Previous Rx's Medication Instructions Recorded naproxen 250 - 500 mg PO BID PRN #60 tab 09/25/20 Allergies Allergy/AdvReac Type Severity Reaction Status Date / Time No Known Allergies Allergy Verified 10/31/20 13:47 General LV: 3 Review of Systems All systems reviewed & are unremarkable except as noted in HPI and below Constitutional Constitutional: Reports as per HPI, Denies chills and Denies fever(s) Eyes Eyes: Denies blurry vision ENT Ears, Nose, Mouth, and Throat: Denies dizziness, Denies sore throat and Denies throat swelling Cardiovascular Cardiovascular: Denies chest pain and Denies dyspnea Respiratory Respiratory: Denies cough and Denies dyspnea Gastrointestinal Gastrointestinal: Denies abdominal pain, Denies diarrhea and Denies vomiting Genitourinary Genitourinary: Denies hematuria and Denies dysuria Musculoskeletal Musculoskeletal: Denies back pain, Denies numbness and Reports other (R foot and leg swelling) Integumentary/Breasts Skin/Breast: Denies lesions and Denies rash Neurologic Neurologic: Denies dizziness, Denies localized weakness and Denies numbness Allergic/Immunologic Allergic/Immunologic: Denies throat swelling [facility] Medical History Anxiety Attention deficit hyperactivity disorder, combined type Javi de la Tourette's syndrome Hyperhidrosis Obesity Osteochondritis dissecans of knee Right knee Surgical History Circumcision Hydrocelectomy Family History Mother Mental disorder anxiety Father Essential hypertension Grandparent Essential hypertension Heart disease Neoplasm Other Substance abuse Other Alcohol abuse Social History Smoking/Tobacco Use Status: Never Smoking risk assessment performed?: Yes Alcohol Intake: current Alcohol Intake frequency: a few times a week Alcohol type: beer Drug use: Never Substance use type: does not use Current gender identity: male Do you feel safe at home: Yes Do you feel safe in your relationship?: Yes Exam Const General: cooperative and no acute distress Nutritional Appearance: obese morbidly obese Orientation: alert, awake and oriented x3 HENMT Head: normal to inspection Eyes General: appearance normal, both eyes and all related structures EOM: EOM intact bilaterally Neck Neck: normal visual inspection and No submandibular swelling Resp Effort & Inspection: normal respiratory effort and able to speak in complete sentences Cardio Rate: regular rate Skin General skin exam: no rashes or lesions noted Neuro General: patient alert, patient awake and patient oriented x3 Cognition: normal cognition Speech: speech normal Motor: muscle tone normal throughout Sensory Exam: no sensory deficits noted Extrem General: normal to inspection, full ROM, capillary refill normal, no calf tenderness bilaterally and no edema Other: No significant edema noted to the right leg in comparison to the left leg. No right calf tenderness. Right DP/PT pulses intact. No erythema or cyanosis. Psych Appearance: grossly normal Mental Status: mental status grossly normal Speech and Movement: speech and movement normal Affect: normal affect
[2020-10-31 13:43] VITALS: BP 146/88; PULSE 102; RESP 18; O2SAT 95
== END 2020-10-31 14:15 | disposition home or self-care (01) ==
PROVIDERS: Emergency Provider Physician Assistant
DX: R60.0 Localized edema (principal); Z98.890 Other specified postprocedural states; Z71.2 Person consulting for explanation of examination or test findings
CPT/HCPCS: 93971

== ENCOUNTER 2021-08-19 18:42 | Emergency (ER) | payer BC, SELFPAY ==
--- NOTE | 2021-08-19 18:53 | ED.GENADUL_ITS ---
Discharge Plan Disposition Patient Disposition: HOME Condition: Stable Discharge Details Clinical Impression: Headache, History of COVID-19 Primary Care Provider: Hossein Morales ED Provider: Ilir Jo Home Meds and New Rx's Prescriptions: Continued naproxen 250 mg tablet 250 - 500 mg PO BID PRN (Reason: Moderate pain or swelling) Qty: 60 0RF Discharge Instructions Instructions: General Headache (ED) Additional Instructions: At this time your CT scan shows no significant abnormality. There is some evidence of sinus disease, which is likely secondary to the COVID he recently had. As we discussed together I would recommend taking [id number] loratadine 10 mg daily to help with any congestion. You can also use a Renea pot as we discussed together to help clear out your sinuses. If you have persistence of your headache over the next few weeks it may be reasonable to have further discussion with your primary care provider about potential MRI or discussion on migraine headache medication management. If you notice any worsening of your symptoms, or any new symptoms such as vomiting, diarrhea, fever, chills, shortness of breath, chest pain, numbness, we akness, or fainting , please return immediately to the emergency department for reevaluation. Please follow up with your primary care provider as soon as possible for reassessment and reevaluation. As always, it was a pleasure participating in your medical care today. Referrals: Hossein Morales [Primary Care Provider] - Discharge Data Discharge Date/Time-TO BE ENTERED AT DEPARTURE: 08/19/21 21:37 Medical Decision Making <Carlie Rubin DO - Last Filed: 08/21/21 00:20> 21yo M w/ a h/o morbid obesity who presents to the ED with a c/o 3 episodes of L sided headache and L orbital pain since yesterday morning. Endorses that he had a positive home COVID test 1 week ago and he is unvaccinated. He had frontal headache, cough, sore throat and rhinorrhea which has since near resolved. Vitals within normal limits. As patient is 7 days out from initial COVID diagnosis, does not meet criteria for Paxlovid. He appears slightly uncomfortable and otherwise nontoxic. He has left eye strabismus with testing extraocular movement which he states is chronic. Otherwise no focal deficits. No meningeal signs. History and presentation does not appear consistent with subarachnoid hemorrhage as headache is currently near resolved. As he has no complaint of fever, neck pain or altered mental status, does not appear consistent with meningitis. We will place an IV, bolus IV fluids, IV Tylenol and Decadron and obtain a CT head. Case endorsed to Dr. Jo to follow-up on CT head and patient response to medications and final disposition. Medical Records Medical records reviewed: Yes I reviewed the patient's medical records. <Ilir Jo, DO - Last Filed: 08/19/21 21:25> 21yo M w/ a h/o morbid obesity who presents to the ED with a c/o 3 episodes of L sided headache and L orbital pain since yesterday morning. Endorses that he had a positive home COVID test 1 week ago and he is unvaccinated. He had frontal headache, cough, sore throat and rhinorrhea which has since near resolved. Vitals within normal limits. As patient is 7 days out from initial COVID diagnosis, does not meet criteria for Paxlovid. He appears slightly uncomfortable and otherwise nontoxic. He has left eye strabismus with testing extraocular movement which he states is chronic. Otherwise no focal deficits. No meningeal signs. History and presentation does not appear consistent with subarachnoid hemorrhage as headache is currently near resolved. As he has no complaint of fever, neck pain or altered mental status, does not appear consistent with meningitis. We will place an IV, bolus IV fluids, IV Tylenol and Decadron and obtain a CT head. Case endorsed to Dr. Jo to follow-up on CT head and patient response to medications and final disposition. Dr. Jo's documentation Case was signed out to me by my colleague Dr. Carlie Rubin. Please refer to her HPI, physical exam, assessment and plan. At time of signout we are pending CT scan results. CT scan shows no evidence of acute process. There is evidence of mild sinus disease. In discussion with the patient he states that when he gets into a shower and breathe through his nose this does improve his headache. This would correlate with symptoms of a sinus component for sure. At this time though with no evidence of mass, no focal neurologic deficit on reexamination, no meningeal signs, no evidence of meningitis, and clinical history inconsistent with aneurysm, MS, or other significant life-threatening etiology, I do feel that the patient is appropriate for discharge. Recommend close follow-up with PCP, will recommend loratadine for sinus congestion, as well as potential Renea pot use at home. Discussed need for potential imaging if symptoms return or recur over the next few weeks. Patient at this time has no headache and feels very well. He is comfortable with discharge. I have extensively reviewed the treatment plan and discharge instructions with the patient. I have addressed all patient concerns at this time. The patient was made aware of what symptoms to monitor for that would warrant a return to the emergency department. Discussed the plan with the patient, they demonstrate verbal understanding and agreement with our assessment and plan at this time. The documentation in this chart was dictated using [employer] dictation software. Please excuse any dictation errors. FINDINGS: Brain: Physiologic calcification in the basal ganglia. No edema or hemorrhage. Cerebral ventricles: No ventriculomegaly. Paranasal sinuses: Mild mucosal thickening in the paranasal sinuses without air- fluid levels. Mastoid air cells: No mastoid effusion. Bones/joints: No acute fracture. Soft tissues: No suspicious lesions. IMPRESSION: 1. No acute intracranial findings. 2. Sinus disease. Thank you for allowing us to participate in the care of your patient HPI <Carlie Rubin DO - Last Filed: 08/21/21 00:20> General Mode of arrival: ambulatory . Date/Time Provider Initiated Documentation: 08/19/21 18:48 . Limitations to Documentation: no limitations . Information obtained by: patient . HPI Narrative: Pt is a 21yo M who presents to the ED w/ a c/o 3 episodes of left-sided headache since yesterday morning. Patient states his headache is improved after taking ibuprofen 2-1/2 hours ago. He states he first developed a left-sided headache yesterday morning which he describes as squeezing behind his left eye and on the left parietal aspect of his head. He states he had another episode of this headache at 3 AM this morning for which he took 2 Excedrin with relief. He states he had another episode mainly on the left side of his head occurring at 530 this evening which has been almost completely resolved with 600 mg of ibuprofen. He states he now feels mild pressure behind his left eye. He states a few days ago he blew his nose forcefully and felt my left eye was going to pop out . Patient states he does have chronic left eye strabismus. Related Data Home Medications Medication Instructions Recorded Confirmed naproxen 250 mg tablet 250 - 500 mg PO BID PRN Moderate 09/25/20 08/19/21 pain or swelling #60 tabs Previous Rx's Medication Instructions Recorded naproxen 250 mg tablet 250 - 500 mg PO BID PRN Moderate 09/25/20 pain or swelling #60 tabs Allergies Allergy/AdvReac Type Severity Reaction Status Date / Time No Known Allergies Allergy Verified 08/19/21 19:03 General Stated Complaint: Headache LV: 4 Review of Systems <Carlie Rubin DO - Last Filed: 08/21/21 00:20> All systems reviewed & are unremarkable except as noted in HPI and below Constitutional Constitutional: Denies chills, Denies excessive sweating, Denies fatigue, Denies fever(s), Reports headache(s), Denies weakness and Denies weight loss Eyes Eyes: Reports system reviewed and no additional complaints, except as documented and Denies blurry vision ENT Ears, Nose, Mouth, and Throat: Denies vertigo, Denies dizziness, Denies otalgia, Reports headache(s), Denies nasal congestion, Denies sore throat and Denies throat swelling Cardiovascular Cardiovascular: Denies chest pain, Denies syncope, Denies rapid heart rate and Denies dyspnea Respiratory Respiratory: Denies chest congestion, Denies cough, Denies pain on inspiration and Denies dyspnea Gastrointestinal Gastrointestinal: Denies abdominal pain, Denies diarrhea and Denies vomiting Genitourinary Genitourinary: Denies hematuria, Denies dysuria and Denies flank pain Musculoskeletal Musculoskeletal: Denies back pain and Denies joint swelling Integumentary/Breasts Skin/Breast: Denies lesions and Denies rash Neurologic Neurologic: Denies behavioral changes, Denies confusion, Denies vertigo, Denies dizziness, Denies syncope, Reports headache(s), Denies localized weakness and Denies weakness Psychiatric Psychiatric: Denies behavioral changes, Denies confusion and Denies depression Endocrine Endocrine: Denies excessive sweating and Denies fatigue Hematologic/Lymphatic Hematologic/Lymphatic: Denies easy bruising and Denies lymphadenopathy Allergic/Immunologic Allergic/Immunologic: Denies throat swelling PFSH <Carlie Rubin DO - Last Filed: 08/21/21 00:20> All Active Problems (Updated 08/19/21 @ 20:12 by Carlie Rubin DO) Localized swelling of right lower leg (Acute) Right leg swelling (Acute) Headache (Acute) History of COVID-19 (Acute) Stiffness of right knee (Acute) 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 Medical History Anxiety Attention deficit hyperactivity disorder, combined type Javi de la Tourette's syndrome Hyperhidrosis Obesity Osteochondritis dissecans of knee Right knee Surgical History Circumcision Hydrocelectomy Family History Mother Mental disorder anxiety Father Essential hypertension Grandparent Essential hypertension Heart disease Neoplasm Other Substance abuse Other Alcohol abuse Social History Smoking/Tobacco Use Status: Never Smoking risk assessment performed?: Yes Alcohol Intake: current Alcohol Intake frequency: a few times a week Alcohol type: beer Drug use: Never Substance use type: does not use Current gender identity: male Do you feel safe at home: Yes Do you feel safe in your relationship?: Yes Exam <Carlie Rubin DO - Last Filed: 08/21/21 00:20> Const General: cooperative and healthy appearing Orientation: alert, awake and oriented x3 HENMT Head: normal to inspection Ears: hearing grossly normal bilaterally, external ears normal and TM's normal bilaterally General nose exam: external nose normal Face and sinus: normal facial exam Mouth: oral mucosae normal Teeth and gingiva: dentition normal Throat: posterior oropharynx normal Eyes General: appearance normal, both eyes and all related structures Eyelids: eyelids normal Pupils: PERRL EOM: EOM intact bilaterally Neck Neck: normal visual inspection Lymphatic: no lymphadenopathy noted Chest Chest: normal inspection of the chest Resp Effort & Inspection: normal respiratory effort and able to speak in complete sentences Auscultation: clear to auscultation bilaterally Cardio Rate: regular rate Rhythm: regular rhythm GI Inspection: normal to inspection Palpation: soft, not firm, no guarding, no hepatosplenomegaly, no masses and nontender Auscultation: normal bowel sounds Back/Spine/Pelvis Back: no CVA tenderness Skin General skin exam: no rashes or lesions noted Neuro General: patient alert, patient awake, patient oriented x3, moves all extremities, no meningeal signs and no focal motor deficits Cognition: normal cognition Speech: speech normal Gait: normal gait Motor: muscle tone normal throughout and strength 5/5 throughout Sensory Exam: no sensory deficits noted Other: L eye strabisumus which goes up and out when looking superiorly. Extrem General: normal to inspection, full ROM and capillary refill normal Psych Appearance: grossly normal Mental Status: mental status grossly normal Speech and Movement: speech and movement normal Affect: normal affect Thought Process: normal Sign Out <Carlie Rubin DO - Last Filed: 08/21/21 00:20> Sign Out Data: Sign Out Comment: COVID-positive on home test 1 week ago. Presenting with 3 episodes of left-sided headache since yesterday morning. Complaining of some headache behind left eye. Reassessed after IV fluids, medication and follow-up on CT head and final disposition. Last updated by Carlie Rubin DO at 08/19/21 19:55
[2021-08-19 18:56] VITALS: BP 132/71; PULSE 90; RESP 16; TEMP 36.6; O2SAT 97
--- NOTE | 2021-08-19 19:30 | DI.CT_ITS ---
Exam(s) CT HEAD WO EXAM: CT HEAD WO CLINICAL HISTORY: L sided headache, r/o acute process. TECHNIQUE: Imaging Protocol: Axial computed tomography images with coronal and sagittal reformatted images were created and reviewed COMPARISON: No exams were available for comparison FINDINGS: Ventricles and Extra axial spaces: Normal in size and morphology for the patient's age. Hemorrhage: None. Cerebral parenchyma: No evidence of an acute territorial infarct. Physiologic calcification is seen in the basal ganglia bilaterally. Midline shift: None. Brainstem/Cerebellum: Normal. Calvarium: Normal. Visualized Paranasal sinuses/Mastoids: There is mucosal thickening in the paranasal sinuses. No air- fluid levels are present. Mastoid air cells are clear. Soft Tissues: Unremarkable. IMPRESSION: 1. No acute intracranial process. 2. Mild sinus disease. RADIATION DOSE DELIVERED: 959.88mGy.cm Total DLP DATA REPOSITORY: All CT scans at this facility are submitted to the National Radiology Data Registry (NRDR) Dose Index Registry (DIR) with the [employer] (ACR). RADIATION OPTIMIZATION: All CT scans at this facility use at least one of these dose optimization te chniques: automated exposure control; mA and/or kV adjustment per patient size (includes targeted exa ms where dose is matched to clinical indication); or iterative reconstruction.
[2021-08-19] MEDS: Dexamethasone 10 MG/ML VIAL IVP (19:54)
[2021-08-19] MEDS: Normal Saline 1,000 ML 1000 ML IV (19:55)
[2021-08-19] MEDS: ACETAMINOPHEN 1,000 MG/100 ML BTL 400 MG IVPB (19:55)
--- NOTE | 2021-08-19 20:54 | DI.VRAD_ITS ---
PROCEDURE INFORMATION: Exam: CT Head Without Contrast Exam date and time: 08/19/2021 20:14 Age: 21 years old Clinical indication: Pain; Headache; Other: Left sided; Additional info: Left sided headache, R/O acute process TECHNIQUE: Imaging protocol: Computed tomography of the head without contrast. Radiation optimization: All CT scans at this facility use at least one of these dose optimization techniques: automated exposure control; mA and/or kV adjustment per patient size (includes targeted exams where dose is matched to clinical indication); or iterative reconstruction. COMPARISON: No relevant prior studies available. FINDINGS: Brain: Physiologic calcification in the basal ganglia. No edema or hemorrhage. Cerebral ventricles: No ventriculomegaly. Paranasal sinuses: Mild mucosal thickening in the paranasal sinuses without air-fluid levels. Mastoid air cells: No mastoid effusion. Bones/joints: No acute fracture. Soft tissues: No suspicious lesions. IMPRESSION: 1. No acute intracranial findings. 2. Sinus disease. Dictated and Authenticated by: Anju Palacios MD. Ordering:RADHA Sexton MD
[2021-08-19 21:34] VITALS: BP 115/63; PULSE 97; RESP 18; O2SAT 99
== END 2021-08-19 21:37 | disposition home or self-care (01) ==
PROVIDERS: Emergency Provider Student in an Organized Health Care Education/Training Program; PCP Family Medicine
DX: R51.9 Headache, unspecified (principal); Z86.16 Personal history of COVID-19; Z28.310 Unvaccinated for COVID-19
CPT/HCPCS: 96361; 96365; 96375; 99284; 70450; 99283; J0131; J1100

== ENCOUNTER 2022-10-30 21:45 | Emergency (ER) | payer BC, SELFPAY ==
[2022-10-30 21:50] VITALS: BP 153/110; PULSE 108; RESP 20; TEMP 36.5; O2SAT 95
--- NOTE | 2022-10-30 22:00 | DI.RAD_ITS ---
Exam(s) XR PORTABLE CHEST AP EXAM: XR PORTABLE CHEST AP CLINICAL HISTORY: cough. TECHNIQUE: 2D digital imaging was performed. COMPARISON: No exams were available for comparison FINDINGS: Single AP portable view. Heart size is upper normal. The mediastinum is not widened. Lungs are clear. No infiltrates nor obvious pleural effusions. IMPRESSION: No acute pulmonary findings on this single AP portable view of the chest. DATA REPOSITORY: RADIATION DOSE DELIVERED:
--- NOTE | 2022-10-30 22:09 | W.ED.GENAD ---
Discharge Plan Disposition Patient Disposition: Home Condition: Good Discharge Details Clinical Impression: Cough Primary Care Provider: Hossein Morales ED Provider: Ilir Jo Home Meds and New Rx's Prescriptions: New benzonatate 100 mg capsule 100 mg PO TID Qty: 30 0RF No Action naproxen 250 mg tablet 250 - 500 mg PO BID PRN (Reason: Moderate pain or swelling) Qty: 60 0RF valacyclovir 1 gram tablet 2,000 mg PO USEASDIRECTD PRN Patient Comments: TAKE 2 TABLETS BY MOUTH TWICE A DAY FOR 1 DAY NEEDED FOR COLD SORE OUTBREAK pantoprazole 40 mg tablet,delayed release (DR/EC) 40 mg PO DAILY Patient Comments: TAKE ONE TABLET BY MOUTH ONCE DAILY albuterol sulfate 90 mcg/actuation HFA aerosol inhaler 2 puff INHALATION QID Patient Comments: INHALE 2 PUFFS BY MOUTH EVERY 4 TO 6 HOURS NEEDED FOR COUGH budesonide-formoterol [Symbicort] 160-4.5 mcg/actuation HFA aerosol inhaler 1 puff INHALATION BID Patient Comments: Inhale 1 puff using inhaler twice a day Combivent Respimat 20-100 mcg/actuation mist 1 puff INHALATION DAILY Discharge Instructions Instructions: Acute Cough (ED) Additional Instructions: At this time your x-ray shows no evidence of pneumonia. I have sent Abhilash Sandoval to your pharmacy on file. Please take these as directed. Please take your Symbicort, 2 puffs twice daily. Follow-up closely with your educational resource center teacher. If you notice any worsening of your symptoms, or any new symptoms such as vomiting, diarrhea, fever, chills, shortness of breath, chest pain, numbness, weakness, or fainting , please return immediately to the emergency department for reevaluation. Please follow up with your primary care provider as soon as possible for reassessment and reevaluation. As always, it was a pleasure participating in your medical care today. Referrals: Hossein Morales [Primary Care Provider] - Medical Decision Making 22-year-old male with past medical history of COVID in the distant past which is led to a chronic cough and worsening of his chronic presents because of this, reactive airway disease for which she takes albuterol who presents today for evaluation of cough. Patient states that over the last year ever since COVID he has had a persistent cough, however over the last week it is notably worsened. He denies any fever or chills. He has been taking his inhalers as directed. He denies any chest pain or shortness of breath. He states that his symptoms are made better when he takes a hot humid steamy shower and he then gets up a fair bit of mucus. He does have a humidifier at bedside which also helps. No other complaints at this time. No other sick contacts. No other modifying factors. Physical exam demonstrates well-appearing male, persistent dry cough. Mild tic douloureux. Lungs are clear to auscultation anteriorly differential signs for reactive airway disease, viral etiology, mild pneumonia. We will get a portable chest x-ray, test for COVID and flu, give Tessalon Perles, monitor closely and reassess. He currently only takes 2 puffs of his Symbicort once daily, we will recommend this increase to 2 puffs twice daily. 11:30 PM X-ray negative for acute process, COVID and flu negative. Patient feels much better after Tessalon Perles. Patient stable for discharge. No evidence of pneumonia. Will recommend increasing dose of Symbicort as well as utilizing Tessalon Perles. Discussed red flags for which to return. Patient is not on CELIA inhibitor. Suspect mild viral etiology Is His Chronic Lung Reactivity. I have extensively reviewed the treatment plan and discharge instructions with the patient. I have addressed all patient concerns at this time. The patient was made aware of what symptoms to monitor for that would warrant a return to the emergency department. Discussed the plan with the patient, they demonstrate verbal understanding and agreement with our assessment and plan at this time. The documentation in this chart was dictated using mmCHANNEL dictation software. Please excuse any dictation errors. FINDINGS: Lungs: Unremarkable. No consolidation. Pleural spaces: Unremarkable. No pleural effusion. No pneumothorax. Heart/Mediastinum: Unremarkable. No cardiomegaly. Bones/joints: Unremarkable. IMPRESSION: No acute findings. Thank you for allowing us to participate in the care of your patient. Dictated and Authenticated by: Damon Silver MD 10/30/2022 10:34 PM Eastern Time ([place] & [place]) HPI General Date/Time Provider Initiated Documentation: 10/30/22 21:47. HPI Narrative: 22-year-old male with past medical history of COVID in the distant past which is led to a chronic cough and worsening of his chronic presents because of this, reactive airway disease for which she takes albuterol who presents today for evaluation of cough. Patient states that over the last year ever since COVID he has had a persistent cough, however over the last week it is notably worsened. He denies any fever or chills. He has been taking his inhalers as directed. He denies any chest pain or shortness of breath. He states that his symptoms are made better when he takes a hot humid steamy shower and he then gets up a fair bit of mucus. He does have a humidifier at bedside which also helps. No other complaints at this time. No other sick contacts. No other modifying factors. Related Data Home Medications Medication Instructions Recorded Confirmed naproxen 250 mg tablet 250 - 500 mg PO BID PRN Moderate 09/25/20 10/30/22 pain or swelling #60 tabs albuterol sulfate 90 mcg/actuation 2 puff inhalation QID 10/30/22 10/30/22 aerosol inhaler benzonatate 100 mg capsule 100 mg PO TID #30 caps 10/30/22 budesonide-formoterol HFA 160 1 puff inhalation BID 10/30/22 10/30/22 mcg-4.5 mcg/actuation aerosol inhaler (Symbicort) ipratropium 20 mcg-albuterol 100 1 puff inhalation DAILY 10/30/22 10/30/22 mcg/actuation mist for inhalation (Combivent Respimat) pantoprazole 40 mg tablet,delayed 40 mg PO DAILY 10/30/22 10/30/22 release valacyclovir 1 gram tablet 2,000 mg PO USEASDIRECTD PRN 10/30/22 10/30/22 Previous Rx's Medication Instructions Recorded naproxen 250 mg tablet 250 - 500 mg PO BID PRN Moderate 09/25/20 pain or swelling #60 tabs benzonatate 100 mg capsule 100 mg PO TID #30 caps 10/30/22 Allergies Allergy/AdvReac Type Severity Reaction Status Date / Time No Known Allergies Allergy Verified 10/30/22 21:55 General Stated Complaint: SOB LV: 3 Review of Systems All systems reviewed & are unremarkable except as noted in HPI and below PFSH All Active Problems (Updated 10/30/22 @ 22:25 by Ilir Jo DO) Localized swelling of right lower leg (Acute) Right leg swelling (Acute) History of COVID-19 (Acute) Cough (Acute) Stiffness of right knee (Acute) 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 Medical History Anxiety Attention deficit hyperactivity disorder, combined type Javi de la Tourette's syndrome Hyperhidrosis Obesity Surgical History Circumcision Hydrocelectomy Family History Mother Mental disorder anxiety Father Essential hypertension Grandparent Essential hypertension Heart disease Neoplasm Other Substance abuse Other Alcohol abuse Social History Smoking/Tobacco Use Status: Never Smoking risk assessment performed?: Yes Alcohol Intake: current Alcohol Intake frequency: a few times a week Alcohol type: beer Drug use: Never Substance use type: does not use Current gender identity: male Do you feel safe at home: Yes Do you feel safe in your relationship?: Yes Exam Narrative Exam Narrative: 1.Const: Well-nourished, Well-developed, appearing stated age 2.Eyes: PERRL, no conjunctival injection, and symmetrical lids. 3.ENT: Atraumatic external nose and ears. Moist MM. Neck: Symmetric, trachea midline, No thyromegaly. 4.CVS: +S1/S2, No murmurs or gallops. Peripheral pulses 2+ and equal in all extremities. Brisk capillary refill in all extremities. 5.RESP: Unlabored respiratory effort. Clear to auscultation bilaterally. No wheezes rales or rhonchi 6.GI: Soft, Nontender/Nondistended, No hepatosplenomegaly. No guarding or rebound. 7.MSK: Normocephalic/Atraumatic, Extremities w/o deformity or ttp No cyanosis or clubbing, Normal movement of all extremities 8.Skin: Warm, Dry. No rashes or lesions. 9.Neuro: geochemical manager II-XII grossly intact. Sensation grossly intact, no focal neurologic deficits. 10.Psych: (AAO) x3. Appropriate mood and affect Course Vital Signs Vital signs: Vital Signs Temperature 36.5 C 10/30/22 21:50 Pulse 108 H 10/30/22 21:50 Respiratory Rate 20 10/30/22 21:50 Blood Pressure 153/110 H 10/30/22 21:50 Pulse Oximetry 95 10/30/22 21:50 Temperature 36.5 C 10/30/22 21:50 Temperature Source Tympanic 10/30/22 21:50 Pulse 108 H 10/30/22 21:50 Respiratory Rate 20 10/30/22 21:50 Blood Pressure 153/110 H 10/30/22 21:50 Blood Pressure Position Sitting 10/30/22 21:50 Pulse Oximetry 95 10/30/22 21:50 Oxygen Delivery Method Room Air 10/30/22 21:50 Oxygen Flow Rate 0 10/30/22 21:50 Pain Level 0 10/30/22 21:50
[2022-10-30] MEDS: Benzonatate 200 MG CAP PO (22:12)
--- NOTE | 2022-10-30 22:34 | DI.VRAD_ITS ---
PROCEDURE INFORMATION: Exam: XR Chest Exam date and time: 10/30/2022 10:19 PM Age: 22 years old Clinical indication: Cough TECHNIQUE: Imaging protocol: Radiologic exam of the chest. Views: 1 view. COMPARISON: No relevant prior studies available. FINDINGS: Lungs: Unremarkable. No consolidation. Pleural spaces: Unremarkable. No pleural effusion. No pneumothorax. Heart/Mediastinum: Unremarkable. No cardiomegaly. Bones/joints: Unremarkable. IMPRESSION: No acute findings. Dictated and Authenticated by: Damon Silver MD. Ordering:RICH Hazel MD
[2022-10-30 23:14] VITALS: BP 140/90; PULSE 90; RESP 16; O2SAT 97
== END 2022-10-30 23:40 | disposition home or self-care (01) ==
PROVIDERS: Emergency Provider Student in an Organized Health Care Education/Training Program; PCP Family Medicine
DX: R05.9 Cough, unspecified (principal); R06.02 Shortness of breath; Z86.16 Personal history of COVID-19; Z23 Encounter for immunization
CPT/HCPCS: 87426; 99283; 71045

== ENCOUNTER 2022-11-03 04:35 | Outpatient (CLI) | payer BC, SELFPAY ==
[2022-11-03] MEDS: Albuterol HFA 18 GM 200 PUFF INH IH (09:11)
[2022-11-03] MEDS: Inhaler, Assist Device 1 EACH MC (09:11)
--- NOTE | 2022-11-03 13:11 | W.PFT ---
Date of service: 11/03/22 Time of Service: 08:16 Pulmonary Function Test Result Indications: Chronic Cough Interpretation Spirometry: There is no airflow limitation. No bronchodilator response. Lung Volumes: Normal lung volumes Diffusion Capacity: Increased diffusion Airway Pressure: Normal airways resistance. Impression Normal pulmonary function tested. The increased diffusion is likely due to obesity. Clinical Correlation therefore is recommended.
== END 2022-11-03 04:36 | disposition home or self-care (01) ==
PROVIDERS: PCP Family Medicine; Visit Provider Family Medicine
DX: R06.02 Shortness of breath (principal); R05.3 Chronic cough
CPT/HCPCS: 94060; 94726; 94729

== ENCOUNTER 2023-01-17 17:11 | Outpatient (REF) | payer BC, SELFPAY ==
[2023-01-17 18:45] LABS: HCT 43.3 % (40.0-50.0); HGB 13.9 g/dL (13.5-17.5); MCHC 32.1 % (32.0-36.0); MCV 87 fL (80-95); MPV 10.3 fL (8.0-11.0); Platelet Count 289 10^3/uL (130-400); RBC 4.97 10^6/uL (4.36-5.78); RDW 12.1 % (11.8-14.1); RDW-SD 38.8 fL; WBC 10.21 10^3/uL (4.4-10.8)
[2023-01-17 19:00] LABS: Hemoglobin A1C 7.6 % (<5.7)
[2023-01-17 19:11] LABS: ALT 48 U/L (16-63); AST 26 U/L (15-37); Albumin 3.4 g/dL (3.4-5.0); Alkaline Phosphatase 98 U/L (46-116); Anion Gap 5.7 mmol/L (3-11); BUN 10 mg/dL (7-18); Bilirubin, Total 0.2 mg/dL (0.2-1.0); CO2 28.3 mmol/L (21.0-32.0); CREATININE 0.7 mg/dL (0.70-1.30); Calcium 9.6 mg/dL (8.5-10.1); Calculated LDL 62 mg/dL (<100); Chloride 104 mmol/L (98-107); Cholesterol 121 mg/dL (<200); Estimated GFR 132.78 (mL/min/1.73m2); Glucose 162 mg/dL (74-106); HDL Cholesterol 38 mg/dL (40-60); Potassium 4.6 mmol/L (3.5-5.1); Sodium 138 mmol/L (136-145); TSH (W/Ref FT4) 3.46 uIU/mL (0.36-3.74); Total Protein 8.4 g/dL (6.4-8.2); Triglyceride 109 mg/dL (<150)
[2023-01-19 10:14] LABS: Insulin 48.3 uIU/mL (<29.0)
== END 2023-01-17 17:12 | disposition home or self-care (01) ==
LOC: NCHCN 17:11
PROVIDERS: PCP Family Medicine; Visit Provider Family Medicine
DX: R06.02 Shortness of breath (principal); F41.8 Other specified anxiety disorders; R73.09 Other abnormal glucose; E66.01 Morbid (severe) obesity due to excess calories
CPT/HCPCS: 80053; 80061; 85027; 83036; 83525; 84443

== ENCOUNTER 2023-05-26 16:05 | Outpatient (REF) | payer BC, SELFPAY ==
[2023-05-26 16:29] LABS: Hemoglobin A1C 6.3 % (<5.7)
== END 2023-05-26 16:06 | disposition home or self-care (01) ==
LOC: NCHCN 16:05
PROVIDERS: PCP Family Medicine; Visit Provider Family Medicine
DX: E11.9 Type 2 diabetes mellitus without complications (principal)
CPT/HCPCS: 83036

== ENCOUNTER 2023-12-25 12:12 | Outpatient (REF) | payer BC, SELFPAY ==
[2023-12-25 16:29] LABS: COMMENT (LAB VIEW ONLY) 175.27 mg/dL; Microalb ug/mg Crea 5.5 ug/mg Cr
== END 2023-12-25 12:13 | disposition home or self-care (01) ==
LOC: NCHCN 12:12
PROVIDERS: PCP Student in an Organized Health Care Education/Training Program; Visit Provider Student in an Organized Health Care Education/Training Program
DX: E11.9 Type 2 diabetes mellitus without complications (principal)
CPT/HCPCS: 82043; 82570

== ENCOUNTER 2024-03-04 22:05 | Outpatient (REF) | payer BC, SELFPAY ==
[2024-03-06 12:43] LABS: Chlamydia Result Negative (Negative); GC Result Negative (Negative)
[2024-03-06 14:44] LABS: Chlamydia Result Negative (Negative); GC Result Negative (Negative)
[2024-03-06 14:45] LABS: Chlamydia Result Negative (Negative); GC Result Negative (Negative)
== END 2024-03-04 22:06 | disposition home or self-care (01) ==
LOC: LBN 22:05
PROVIDERS: PCP Student in an Organized Health Care Education/Training Program; Visit Provider Nurse Practitioner Family
DX: Z11.3 Encounter for screening for infections with a predominantly sexual mode of transmission (principal)
CPT/HCPCS: 87491; 87591

== ENCOUNTER 2024-10-28 16:54 | Outpatient (REF) | payer BC, SELFPAY ==
[2024-10-28 21:40] LABS: Anion Gap 9.0 mmol/L (3-11); BUN 12 mg/dL (7-18); CO2 26.0 mmol/L (21.0-32.0); Calcium 9.4 mg/dL (8.5-10.1); Chloride 105 mmol/L (98-107); Estimated GFR 131.14 (mL/min/1.73m2); Glucose 86 mg/dL (74-106); Potassium 4.6 mmol/L (3.5-5.1); Sodium 140 mmol/L (136-145)
== END 2024-10-28 16:55 | disposition home or self-care (01) ==
LOC: NCHCN 16:54
PROVIDERS: PCP Student in an Organized Health Care Education/Training Program; Visit Provider Student in an Organized Health Care Education/Training Program
DX: F64.9 Gender identity disorder, unspecified (principal)
CPT/HCPCS: 80048

== ENCOUNTER 2025-03-06 19:55 | Emergency (ER) | payer MEDICAID, SELFPAY ==
[2025-03-06 19:58] VITALS: BP 127/73; PULSE 102; RESP 18; O2SAT 98
--- NOTE | 2025-03-06 20:27 | ED.GENADUL_ITS ---
Discharge Plan Discharge Details Chief Complaint: PsychEval Clinical Impression: Suicidal ideation Primary Care Provider: Fercho Fernandez ED Provider: Eddie Clemons Home Meds and New Rx's Prescriptions: No Action spironolactone 100 mg tablet 200 mg PO DAILY Patient Comments: TAKE ONE TABLET BY MOUTH TWICE A DAY estradiol valerate 20 mg/mL oil 6 mg IM Q14D Patient Comments: INJECT 0.2ML (4MG TOTAL) INTO SHOULDER, THIGH, OR BUTTOCKS EVERY 7 DAYS DISCARD MULTI-USE VIAL AFTER 4 WEEKS naproxen 250 mg tablet 250 - 500 mg PO BID PRN (Reason: Moderate pain or swelling) Qty: 60 0RF valacyclovir 1 gram tablet 2,000 mg PO USEASDIRECTD PRN Patient Comments: TAKE 2 TABLETS BY MOUTH TWICE A DAY FOR 1 DAY NEEDED FOR COLD SORE OUTBREAK pantoprazole 40 mg tablet,delayed release (DR/EC) 40 mg PO DAILY Patient Comments: TAKE ONE TABLET BY MOUTH ONCE DAILY albuterol sulfate 90 mcg/actuation HFA aerosol inhaler 2 puff INHALATION QID Patient Comments: INHALE 2 PUFFS BY MOUTH EVERY 4 TO 6 HOURS NEEDED FOR COUGH budesonide-formoterol [Symbicort] 160-4.5 mcg/actuation HFA aerosol inhaler 1 puff INHALATION BID Patient Comments: Inhale 1 puff using inhaler twice a day Combivent Respimat 20-100 mcg/actuation mist 1 puff INHALATION DAILY HPI General Mode of arrival: ambulatory . Date/Time Provider Initiated Documentation: 03/06/25 20:19 . Limitations to Documentation: no limitations . Information obtained by: patient . HPI Narrative: Suicidal, no specific plan. Has felt this way previously but has not sought medical attention. Recent increase of stressors, does not give additional information. Regular use of marijuana. Denies any other drug use. No alcohol use. Has not tried to harm self today but has thoughts about the possibility of a gun or knives in their house. No recent illness or injury. Related Data Home Medications ?Medication ?Instructions ?Recorded ?Confirmed naproxen 250 mg tablet 250 - 500 mg (1 - 2 x 250 mg ) PO 09/25/20 03/06/25 BID PRN Moderate pain or swelling #60 tabs albuterol sulfate 90 mcg/actuation 2 puff inhalation Q ID 10/30/22 03/06/25 aerosol inhaler budesonide-formoterol HFA 160 1 puff inhalation BID 03/06/25 mcg-4.5 mcg/actuation aerosol inhaler (Symbicort) ipratropium 20 mcg-albuterol 100 1 puff inhalation STEPHANE LY 10/30/22 03/06/25 mcg/actuation mist for inhalation (Combivent Respimat) pantoprazole 40 mg tablet,delayed 40 mg PO DAILY 10/3003/06/25 release valacyclovir 1 gram tablet 2,000 mg PO USEASDIRECTD WA N 10/30/22 03/06/25 estradiol valerate 20 mg/mL 6 mg IM Q14D 03/06/2507/26 intramuscular oil spironolactone 100 mg tablet 200 mg PO DAILY 03/06/25 03/06/25 Previous Rx's ?Medication ?Instructions ?Recorded naproxen 250 mg tablet 250 - 500 mg (1 - 2 x 250 mg ) PO 09/25/20 BID PRN Moderate pain or swelling #60 tabs Allergies Allergy/AdvReac Type Severity Reaction Status Date / Time No Known Allergies Allergy Verified 03/06/25 20:03 General Stated Complaint: PsychEval LV: 2 Review of Systems Constitutional Constitutional: Denies fatigue, Denies fever(s), Denies headache(s) and Denies weakness ENT Ears, Nose, Mouth, and Throat: Denies headache(s) Cardiovascular Cardiovascular: Denies chest pain and Denies dyspnea Respiratory Respiratory: Denies cough and Denies dyspnea Gastrointestinal Gastrointestinal: Denies abdominal pain, Denies nausea and Denies vomiting Genitourinary Genitourinary: Denies dysuria Musculoskeletal Musculoskeletal: Denies back pain Integumentary/Breasts Skin/Breast: Denies rash Neurologic Neurologic: Denies headache(s) and Denies weakness Psychiatric Psychiatric: Denies anxiety, Reports depression, Denies homicidal ideation and Reports suicidal ideation Endocrine Endocrine: Denies fatigue Exam Const General: cooperative, healthy appearing, comfortable and no acute distress Orientation: alert, awake and oriented x3 HENMT Head: normal to inspection, normocephalic and atraumatic Face and sinus: normal facial exam Mouth: moist mucous membranes Throat: posterior oropharynx normal Eyes General: appearance normal, both eyes and all related structures Conjunctivae: conjunctivae normal Neck Neck: normal visual inspection, full ROM, trachea midline and supple Resp Effort & Inspection: normal respiratory effort and able to speak in complete sentences Auscultation: clear to auscultation bilaterally Cardio Rate: regular rate Rhythm: regular rhythm GI Palpation: soft and nontender Skin General skin exam: no rashes or lesions noted Neuro General: patient alert, patient awake, patient oriented x3, moves all extremities and no focal motor deficits Cognition: normal cognition Speech: speech normal Gait: normal gait Motor: muscle tone normal throughout Sensory Exam: no sensory deficits noted Extrem General: normal to inspection, full ROM and capillary refill normal Psych Appearance: grossly normal Mental Status: mental status grossly normal Speech and Movement: speech and movement normal Mood: dysthymic mood Affect: sad Attitude: cooperative Thought Process: normal Thought Content: suicidality Insight: fair Judgment: fair Course Vital Signs Vital signs: Vital Signs Pulse 102 H 03/06/25 19:58 Respiratory Rate 18 03/06/25 19:58 Blood Pressure 127/73 03/06/25 19:58 Pulse Oximetry 98 03/06/25 19:58 Pulse 102 H 03/06/25 19:58 Respiratory Rate 18 03/06/25 19:58 Blood Pressure 127/73 03/06/25 19:58 Pulse Oximetry 98 03/06/25 19:58 Pain Level 0 03/06/25 19:58 Medical Decision Making 25-year-old male who goes by [employer] and is currently transitioning to female presents to the ER for evaluation of increased stressors resulting in suicidal thoughts. No specific plan but does state that there are knives and a gun in their house. Has felt this way before but has never sought medical attention for this, denies psychiatric hospitalization. No self-harm today. No thoughts of harming others. Does have an outpatient therapist to they see regularly. No change in medications. Denies recent illness or trauma. Clinically patient appears well, nontoxic, has good insight. Medically cleared using the smart medical clearance form. Labs are not necessary for additional mental health evaluation. Patient was initially seen in exam room 5, care plan and product safety specialist ordered, will have [facility] mental health evaluate the patient. Given patient is medically cleared, may be moved to zone B. Awaiting mental health evaluation to determine disposition whether it be inpatient mental health or a safety plan home. [facility] eval completed, seeking voluntary placement. Medical Records Medical records reviewed: Yes I reviewed the patient's medical records. Quality:SDOH Health Related Social Needs: Health related social needs risk of homeless food inse curity personal safety house/econ circumstance finding work daily activities lonely/isolated Health related social needs details Pt may need assist ance with housing and work PFSH All Active Problems (Updated 03/06/25 @ 22:15 by Eddie Clemons PA) Suicidal ideation (Acute) History of COVID-19 (Acute) Right leg swelling (Acute) Localized swelling of right lower leg (Acute) Stiffness of right knee (Acute) 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 Medical History Obesity Javi de la Tourette's syndrome Anxiety Hyperhidrosis Attention deficit hyperactivity disorder, combined type Surgical History Hydrocelectomy Circumcision Family History Mother Mental disorder anxiety Father Essential hypertension Grandparent Essential hypertension Heart disease Neoplasm Other Substance abuse Other Alcohol abuse Social History Smoking/Tobacco Use Status: Never Smoking risk assessment performed?: Yes Alcohol Intake: current Alcohol Intake frequency: a few times a week Alcohol type: beer Drug use: Daily Substance use type: marijuana Current gender identity: male Do you feel safe at home: Yes Do you feel safe in your relationship?: Yes
[2025-03-06 21:04] VITALS: TEMP 37.2
[2025-03-07] MEDS: Spironolactone 50 MG TAB 200 MG PO ×2 (00:25→11:16)
--- NOTE | 2025-03-07 00:34 | TELEP.MEDR_ITS ---
Date of service: 03/07/25 Time of Service: 00:34 Telepharmacy Home Med Rec Allergies Allergies: No Known Allergies Allergy (Verified 03/06/25 20:03) Interview Person Interviewed: No interview. UNable to confirm home medication doses at this time Recommended Changes Recommended Changes(reason for recommendation): Please follow-up with prescribing providers to confirm medication doses * Call Abbey Barney -[phone] for current dosing of estradiol medications * Call Fercho Fernandez [phone] for inhalers ?glycopyrrolate and metformin Attestation: Please contact the [facility] Medication Reconciliation Pharmacist at for any questions.
--- NOTE | 2025-03-07 00:34 | TELEP.MEDREC ---
Date of service: 03/07/25 [facility]: [facility] All[facility] Allergies: No Known Allergies Allergy (Verified 03/06/25 20:03) Interview Person Interviewed: No interview. UNable to confirm home medication doses at this time Recommended Changes Recommended Changes(reason for recommendation): Please follow-up with prescribing providers to confirm medication doses Call Abbey Barney -[phone] for current dosing of estradiol medications Call Fercho Fernandez [phone] for inhalers ?glycopyrrolate and metformin Attestation: Please contact the [facility] Medication Reconciliation Pharmacist at for any questions.
[2025-03-07 00:37] LABS: Glucose Negative (Negative)
[2025-03-07 01:04] LABS: Cannabinoids THC Positive (Negative)
--- NOTE | 2025-03-07 02:13 | PDOC.MHCN ---
Date of service: 03/06/25 Time of Service: 21:33 PHQ-9 Over the last 2 weeks, how often have you been bothered by any of the following problems? 1. Little interest or pleasure in doing things: nearly every day 2. Feeling down, depressed, or hopeless: nearly every day 3. Trouble falling or staying asleep, or sleeping too much: not at all 4. Feeling tired or having little energy: more than half the days 5. Poor appetite or overeating: nearly every day 6. Feeling bad about yourself - or that you are a failure or have let yourself and your family down: nearly every day 7. Trouble concentrating on things, such as reading the newspaper or watching television: nearly every day 8. Moving or speaking so slowly that other people could have noticed? - Or the opposite - being so fidgety or restless that you have been moving around a lot more than usual: not at all 9. Thoughts that you would be better off or of hurting yourself in some way: nearly every day Total score: 20 If you checked off any problems, how difficult have these problems made it for you to do your work, take care of things at home, or get along with other people?: extremely difficult Source: Developed by Drs. Jah Larkin, Rand Boothe, Arcadio Henry and colleagues, with an educational mary alice from [employer]. Suicide Severity Rate CSSRS Have you wished you were or wished you could go to sleep and not wake up?: Yes Have you actually had any thoughts of killing yourself?: Yes CSSRS2 Have you been thinking about how you might do this?: Yes Have you had these thoughts and had some intention of acting on them?: Yes Have you started to work out or worked out the details of how to kill yourself? Do you intend to carry out this plan?: Yes CSSRS3 Have you ever done anything, started to do anything or prepared to do anything to end your life?: No Screening Score Total Score: 4 Screening: Positive Mental Health Emergency Note Release [facility] release signed:: Yes Reason for Visit The client presented to the [facility] ED with SI with intent and plan. The client felt that she was unable to keep herself safe. The client is not known to [facility] or this clinician prior to this assessment. The client self reports to never have been hospitalized in the past for her mental health. In the last 2 weeks has the pt presented for ES prior to today?: No Client Information Client is: New Well Housed: Yes Non Suicidal Self Injury Current: Yes, The client reports hitting herself in the head when upset. History: No Safety Risk/Harm to Self or Others Current Ideation to Harm Self or Others: Yes to self. Intent: yes, has intent. Plan: yes,has a plan. History of suicide attempt: No history of suicide attempt reported CALM/Risk Level Does risk to harm exist?: yes. Access to means: Yes. Types of Means: Other weapons and Medication. Details: The client reported having access to [facility] and medications . Counseling provided: No Duty to warn indicated: No Asssessment/Mental Status Appearance: Disheveled Attitude: Cooperative and Friendly Behavior: Unremarkable Speech: Normal Affect: Cogruent with mood Mood: Depressed Thought process: Goal directed Hallucinations: No Delusions: No Attention: Unremarkable Perception: Not impaired Orientation: Fully orientated Memory: Intact Insight: Excellent and Fair Judgement: Fair Neurovegetative Symptoms Sleep: No change Appetitie: No change Interests: Decrease Energy: Decrease Libido: Not applicable Additional Issues: Assaultive/Threatening Behavior: No Medical Concerns: No Client engaged in active self harm w/weapon: No Threatening to run away: No Child reported abuse/neglect: No Voluntarily presenting for services: Yes Domestic violence is a concern: No Extreme Psychosis or extreme behavior is present: No Impression The client is a 25 year old biological male who identifies as a female with she/her pronouns and resides in [place], [place] with her family. The client presents with a disheveled appearance and is seen in blue paper scrubs sitting in her hospital bed. Affect appears to be congruent with mood. Speech is in normal range. Client is friendly and cooperative with this clinician; they report their mood as depressed. Thought process appears to be congruent with mood. The client denied visual and auditory hallucinations. There are no delusions observed by this clinician. Cognitive assessment reveals orientation to person, place and time. The client reports having suicidal ideations over the last year with the last week being worse. The client states she does not know what to do or how to pick her life back up and to move forward. The client states she is being yelled at on a daily basis at home. The client states she wants to leave and don't know how and her life is falling apart. 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 The client reports years of oppressed trauma as she is going through a second puberty. The client states she is going through a medical transformation. The client denies current HI with no plan or intent. The client reports NSSI by punching herself in the head when upset. The client reports current SI with her intent rated a 7 out of 10. The client reported multiple plans as crashing her car or driving into the nevarez. The client reports a gun in her house but it is in a safe. The client states not having something readily available is what is stopping her. The client states she has been weighing her options and what is the easiest and the quickest. The client scored a 20/27 on the PHQ-9 and a 5/6 on the CSSRS. The client was agreeable to seek voluntary inpatient treatment at this time. Plan/Disposition Recommended Disposition: Hospitalization facilities contacted. Plan: The client will remain at the [facility] ED until placement is secured. The client will receive once a day daily assessments by emergency services until placed. Reports/communication Outcome discussed with: ED/Personnel
[2025-03-07] MEDS: LORazepam 0.5 MG TAB PO (02:48)
--- NOTE | 2025-03-07 07:11 | PDOC.MHCN ---
Date of service: 03/06/25 Time of Service: 21:33 Suicide Severity Rate CSSRS Have you wished you were or wished you could go to sleep and not wake up?: Yes Have you actually had any thoughts of killing yourself?: Yes CSSRS2 Have you been thinking about how you might do this?: Yes Have you had these thoughts and had some intention of acting on them?: Yes Have you started to work out or worked out the details of how to kill yourself? Do you intend to carry out this plan?: Yes CSSRS3 Have you ever done anything, started to do anything or prepared to do anything to end your life?: Yes CSSRS4 Was this within the past three months?: Yes Screening Score Total Score: 8 Screening: Positive Mental Health Emergency Note Release [facility] release signed:: Yes Reason for Visit The client is a 25 year old biological male who identifies as a female with she/her pronouns and resides in [place], [place] with her family. The client presents with a disheveled appearance and is seen in blue paper scrubs sitting in her hospital bed. Affect appears to be congruent with mood. Speech is in normal range. Client is friendly and cooperative with this clinician; they report their mood as depressed. Thought process appears to be congruent with mood. The client denied visual and auditory hallucinations. There are no delusions observed by this clinician. Cognitive assessment reveals orientation to person, place and time. The client reports having suicidal ideations over the last year with the last week being worse. The client states she does not know what to do or how to pick her life back up and to move forward. The client states she is being yelled at on a daily basis at home. The client states she wants to leave and don't know how and her life is falling apart. 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 The client reports years of oppressed trauma as she is going through a second puberty. The client states she is going through a medical transformation. The client denies current HI with no plan or intent. The client reports NSSI by punching herself in the head when upset. The client reports current SI with her intent rated a 7 out of 10. The client reported multiple plans as crashing her car or driving into the nevarez. The client reports a gun in her house but it is in a safe. The client states not having something readily available is what is stopping her. The client states she has been weighing her options and what is the easiest and the quickest. The client scored a 20/27 on the PHQ-9 and a 5/6 on the CSSRS. The client was agreeable to seek voluntary inpatient treatment at this time. In the last 2 weeks has the pt presented for ES prior to today?: No CALM/Risk Level Does risk to harm exist?: No Asssessment/Mental Status Appearance: Disheveled Attitude: Cooperative and Friendly Behavior: Unremarkable Speech: Normal Affect: Cogruent with mood Mood: Depressed Thought process: Goal directed Hallucinations: No evidence Delusions: No evidence Attention: Unremarkable Perception: Not impaired Orientation: Fully orientated Insight: Fair Judgement: Fair Neurovegetative Symptoms Sleep: No change Appetitie: No change Interests: Decrease Energy: Decrease Libido: Not applicable Plan/Disposition Recommended Disposition: Hospitalization facilities contacted. Plan: The client will wait at [facility] untpla placement is secured. Reports/communication Outcome discussed with: ED/Personnel
--- NOTE | 2025-03-07 09:02 | ED.PSYCHBOAR ---
Date of service: 03/07/25 Time of Service: 09:02 Psychiatric Border Handoff Update Brief Story: Ralph RAMIREZ today, no behavioral issues overnight Status: EE Able to leave: no, this patient is an EE MDM Shift Events: 11:56 AM I spoke with Jessenia Sheppard from the [facility] who graciously agreed to accept the patient for hospitalization. Mediation Reconciliation performed: Yes Code Status ordered: Yes Diet ordered: Yes Discharge Plan Disposition Patient Disposition: Psychiatric Hospital/Unit Specific Psychiatric Facility: [facility] Discharge Details Clinical Impression: Suicidal ideation Primary Care Provider: Fercho Fernandez ED Provider: Hossein De La Paz [place] Meds and New Rx's Prescriptions: Continued spironolactone 100 mg tablet 200 mg PO DAILY Patient Comments: TAKE ONE TABLET BY MOUTH TWICE A DAY estradiol valerate 20 mg/mL oil 6 mg IM Q14D Patient Comments: INJECT 0.2ML (4MG TOTAL) INTO SHOULDER, THIGH, OR BUTTOCKS EVERY 7 DAYS DISCARD MULTI-USE VIAL AFTER 4 WEEKS estradiol 2 mg tablet 2 mg PO BID Patient Comments: TAKE ONE TABLET BY MOUTH TWICE A DAY naproxen 250 mg tablet 250 - 500 mg PO BID PRN (Reason: Moderate pain or swelling) Qty: 60 0RF valacyclovir 1 gram tablet 2,000 mg PO USEASDIRECTD PRN Patient Comments: TAKE 2 TABLETS BY MOUTH TWICE A DAY FOR 1 DAY NEEDED FOR COLD SORE OUTBREAK pantoprazole 40 mg tablet,delayed release (DR/EC) 40 mg PO DAILY Patient Comments: TAKE ONE TABLET BY MOUTH ONCE DAILY albuterol sulfate 90 mcg/actuation HFA aerosol inhaler 2 puff INHALATION QID Patient Comments: INHALE 2 PUFFS BY MOUTH EVERY 4 TO 6 HOURS NEEDED FOR COUGH budesonide-formoterol [Symbicort] 160-4.5 mcg/actuation HFA aerosol inhaler 1 puff INHALATION BID Patient Comments: Inhale 1 puff using inhaler twice a day Combivent Respimat 20-100 mcg/actuation mist 1 puff INHALATION DAILY Discharge Instructions Additional Instructions: You are seen in the emergency department for your suicidal ideation. No medications were changed. You are transferred to the [facility].
[2025-03-07] MEDS: Pantoprazole 40 MG TABCR PO (09:46)
[2025-03-07 09:53] VITALS: BP 113/70; PULSE 74; TEMP 36.7; O2SAT 97
[2025-03-07] MEDS: Estradiol 1 MG TAB 2 MG PO (11:08)
--- NOTE | 2025-03-07 15:00 | MHPN_ITS ---
Date of service: 03/07/25 Time of Service: 11:15 Mental Health Emergency Note Release [facility] release signed:: Yes Reason for Visit Ms Mejia legal name Abdi Lyn is a 25 year old single transgender female who currently resides with her parents in [facility]. The client reports having multiple plans of suicide and a intent of 7 out of 10 still. When this clinician utilized the case approach in order to try and obtain more information on the plans the client stated that she had not worked out all of the details but had plans and remained vague with this clinician. The client reports she has been transitioning for a year to a female and that she only recently started seeing a bag bailer therapist. The client states that she also has started a relationship which makes her want to have a future work toward reducing her suicidality. The client reports disrupted sleep and maybe sleeping for 4 hours. The client is currently voluntarily seeking in patient treatment. In the last 2 weeks has the pt presented for ES prior to today?: No CALM/Risk Level Does risk to harm exist?: No Asssessment/Mental Status Appearance: Well groomed Attitude: Cooperative and Friendly Behavior: Unremarkable Speech: Normal Affect: Normal Mood: Depressed Thought process: Unremarkable Hallucinations: No evidence Delusions: No evidence Attention: Unremarkable Perception: Not impaired Orientation: Fully orientated Memory: Intact Insight: Fair Judgement: Fair Additional Issues: Assaultive/Threatening Behavior: No Medical Concerns: No Client engaged in active self harm w/weapon: No Threatening to run away: No Child reported abuse/neglect: No Voluntarily presenting for services: Yes Domestic violence is a concern: No Extreme Psychosis or extreme behavior is present: No Plan/Disposition Recommended Disposition: Hospitalization facilities contacted. Plan: The client is seeking in patient treatment. Reports/communication Outcome discussed with: ED/Personnel
--- NOTE | 2025-03-07 17:30 | CMPROGNOTE_ITS ---
Date of service: 03/07/25 Time of Service: 17:30 Care Management Progress Note Progress Note Text Progress Note Text: CM huddled with ED RN, rn discharge, RN carpenter labor supervisor, ED MD, and [facility] clinician to discuss Jackie's plan of care. Per RN, Jackie has been appropriately interacting with staff. Per [facility], Jackie completed intake with the ES clinician yesterday, as she is expressing interest in coordinating care post discharge. [facility] reported that [facility] is considering Jackie for admission today, but noted that she does not have insurance; this should not hold up this acute tranfer for treatment, which was discussed in the huddle. CM sent a referral to [facility], who was able to reach out to Jackie and assist her in applying for [facility], and expedited the application for access to care. Per [facility], she qualifies for [facility], and it should be active as early as Monday. Jackie was accepted at [facility] this afternoon, and transported there via [facility] EMS. She was agreeable to this plan and transferred early this evening. Social Determinants of Health Screening Social Determinants of health last assessed in clinic: 03/07/25 Will the Patient Participate in the Screening?: Yes Do you worry about having a steady place to live?: yes What is your living situation today?: I have housing today, but am worried about losing it Problems where you live: no known problems In the past 12 months, have you had to go without electric, gas, oil or water in your home?: no 1. Within the past 12 months, we worried whether our food would run out before we got money to buy more.: Don't know/refused 2. Within the past 12 months, the food we bought just didn't last and we didn't have money to get more.: Don't know/refused Has lack of transportation kept you from medical appointments or from doing things needed for daily living?: no Has anyone in your life made you feel unsafe or unsupported?: yes How often does anyone, including family and friends, physically hurt you?: Never How often does anyone, including family and friends, insult or talk down to you?: Frequently How often does anyone, including family and friends, threaten you with harm?: Never How often does anyone, including family and friends, scream or curse at you?: Frequently HRSN Safety total score: 12 How hard is it for you to pay for the very basics like food, housing, medical ca re, and heating? Would you say it is:: Somewhat hard Do you want help finding or keeping work or a job?: Yes, help finding work If for any reason you need help with day-to-day activities such as bathing, preparing meals, shopping, managing finances, etc., do you get the help you need?: I could use a little more help How often do you feel lonely or isolated from those around you?: Often Do you speak a language other than [place]ian at home?: No Does the patient want assistance with any of the above?: Yes Health Related Social Needs Health related social needs: housing instability, housed, with risk of homelessness (Z59.811), problem related to primary support group (Z63.9), problems related to housing/economic circumstances (Z59.89), problems finding work (Z56.9), problems with daily activities (Z73.9) and feeling lonely/isolated (Z60.8) Health related social needs details: Pt may need assistance with housing and work
== END 2025-03-07 15:34 ==
PROVIDERS: Student in an Organized Health Care Education/Training Program; Emergency Provider Emergency Medicine; PCP Student in an Organized Health Care Education/Training Program
DX: R45.851 Suicidal ideations (principal); Z59.41 Food insecurity; Z59.811 Housing instability, housed, with risk of homelessness
CPT/HCPCS: 99285 ×2; 00123; 80307; 96127; G0378; 81003; J3490